=== PATIENT | male | born 1950 | race Caucasian/White ===

== ENCOUNTER 2023-10-20 16:24 | Observation (INO) | payer MEDICARE, SELFPAY ==
[2023-10-20 16:36] VITALS: BP 152/97; PULSE 70; RESP 20; TEMP 36.8; O2SAT 95; BMI 29.2
--- NOTE | 2023-10-20 16:40 | XR_ITS ---
The [address] [address] Patient Name: LALA POLLACK MRN: [id number] date: 1950 Sex: M Assigned Patient Location: ER Current Patient Location: ED.MAIN Accession/Order Number: [id number] Exam Date: 10/20/2023 16:55 Report Date: 10/20/2023 17:45 At the request of: SNEHAL BROOKS Procedure: XR ankle RT min 3V EXAM: XR tibia fibula RT 2V, XR foot RT min 3V, XR ankle RT min 3V HISTORY: fall COMPARISON: None. TECHNIQUE: 2 views of the right tibia-fibula and 3 views of the right foot and ankle FINDINGS: There is no acute fracture or distention. No aggressive bone lesion. Ankle mortise is normal. The talar dome is congruent. There is a small osseous spur. There is hallux valgus. There are degenerative changes of the forefoot and midfoot. There is soft tissue swelling of the ankle and dorsal foot. XR/XR ankle RT min 3V IMPRESSION: No acute fracture. Soft tissue swelling of the ankle and dorsal foot. Electronically authenticated by: ANJELICA MILLARD Date: 10/20/2023 17:45
--- NOTE | 2023-10-20 16:40 | XR_ITS ---
The [address] [address] Patient Name: LALA POLLACK MRN: [id number] date: 1950 Sex: M Assigned Patient Location: ER Current Patient Location: ED.MAIN Accession/Order Number: [id number] Exam Date: 10/20/2023 16:55 Report Date: 10/20/2023 17:45 At the request of: SNEHAL BROOKS Procedure: XR foot RT min 3V EXAM: XR tibia fibula RT 2V, XR foot RT min 3V, XR ankle RT min 3V HISTORY: fall COMPARISON: None. TECHNIQUE: 2 views of the right tibia-fibula and 3 views of the right foot and ankle FINDINGS: There is no acute fracture or distention. No aggressive bone lesion. Ankle mortise is normal. The talar dome is congruent. There is a small osseous spur. There is hallux valgus. There are degenerative changes of the forefoot and midfoot. There is soft tissue swelling of the ankle and dorsal foot. XR/XR foot RT min 3V IMPRESSION: No acute fracture. Soft tissue swelling of the ankle and dorsal foot. Electronically authenticated by: ANJELICA MILLARD Date: 10/20/2023 17:45
--- NOTE | 2023-10-20 16:40 | ECG_ITS ---
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
--- NOTE | 2023-10-20 16:41 | XR_ITS ---
The [address] [address] Patient Name: LALA POLLACK MRN: [id number] date: 1950 Sex: M Assigned Patient Location: ER Current Patient Location: ED.MAIN Accession/Order Number: [id number] Exam Date: 10/20/2023 16:55 Report Date: 10/20/2023 17:45 At the request of: SNEHAL BROOKS Procedure: XR tibia fibula RT 2V EXAM: XR tibia fibula RT 2V, XR foot RT min 3V, XR ankle RT min 3V HISTORY: fall COMPARISON: None. TECHNIQUE: 2 views of the right tibia-fibula and 3 views of the right foot and ankle FINDINGS: There is no acute fracture or distention. No aggressive bone lesion. Ankle mortise is normal. The talar dome is congruent. There is a small osseous spur. There is hallux valgus. There are degenerative changes of the forefoot and midfoot. There is soft tissue swelling of the ankle and dorsal foot. XR/XR tibia fibula RT 2V IMPRESSION: No acute fracture. Soft tissue swelling of the ankle and dorsal foot. Electronically authenticated by: ANJELICA MILLARD Date: 10/20/2023 17:45
--- NOTE | 2023-10-20 16:41 | PC.NURSE ---
Pain to right lower leg, swelling to right ankle present, skin pink and warm and pulses present.
--- NOTE | 2023-10-20 16:42 | ED.LOWEXI1 ---
HPI - Extremity Injury (Lower) General Chief Complaint: Extremity Injury, Lower Stated Complaint: Lower Extremity Injury Time Seen by Provider: 10/20/23 16:30 Source: patient and family Mode of arrival: Wheelchair Limitations: no limitations History of Present Illness HPI Narrative: 73-year-old male presents for a chief complaint of pain in his right ankle area. He had fallen yesterday and was seen at another hospital emergency department. He had x-rays of his tibia and these were found to be negative and he was discharged home. He is now having a great deal of trouble walking and isn't able to get around on the walker like he normally does. He saw his PCP who directed him here for further evaluation. Family reports that his physician was suggesting a short-term stay so that he could be seen by physical therapy. No other injury was sustained. He states it really doesn't hurt. Related Data Allergies Allergy/AdvReac Type Severity Reaction Status Date / Time No Known Drug Allergies Allergy Verified 10/20/23 16:35 Review of Systems ROS Narrative A ten point review of systems is negative except as noted above. PFSH PFSH Social History Smoking status: Former smoker Exam Narrative Exam Narrative: Nurses note and vital signs reviewed and patient is not hypoxic. General: The patient appears well and in no apparent distress. Patient is resting comfortably on cart. Skin: Warm, dry, no pallor noted. There is no rash noted. Head: Normocephalic, atraumatic Eye: Normal conjunctiva, no drainage Ears, Nose, Mouth, and Throat: oral mucosa is moist. Nares patent. Cardiovascular: Regular Rate and Rhythm Respiratory: Patient is in no distress, no accessory muscle use, lungs are clear to auscultation, no wheezing, rales or rhonchi Back: non-tender GI: soft and nontender Musculoskeletal: the right ankle and foot are swollen. There is no break in the skin. Neurological: awake and alert Psychiatric: Cooperative Constitutional Vital Signs, click to edit/add: Last Vital Signs Temp 98.3 F 10/20/23 16:36 Pulse 70 10/20/23 16:36 Resp 20 10/20/23 16:36 BP 152/97 H 10/20/23 16:36 Pulse Ox 95 10/20/23 16:36 O2 Del Method Room Air 10/20/23 16:36 Course Vital Signs Vital signs: Vital Signs Temperature 98.3 F 10/20/23 16:36 Pulse Rate 70 10/20/23 16:36 Respiratory Rate 20 10/20/23 16:36 Blood Pressure 152/97 H 10/20/23 16:36 Pulse Oximetry 95 10/20/23 16:36 Oxygen Delivery Method Room Air 10/20/23 16:36 Temperature 98.3 F 10/20/23 16:36 Pulse Rate 70 10/20/23 16:36 Respiratory Rate 20 10/20/23 16:36 Blood Pressure 152/97 H 10/20/23 16:36 Pulse Oximetry 95 10/20/23 16:36 Oxygen Delivery Method Room Air 10/20/23 16:36 MDM - Extremity Injury (Lower) MDM Narrative Medical decision making narrative: x-rays per radiology shows soft tissue swelling but no fracture. The patient will be admitted to the hospital, he cannot ambulate. Findings are discussed with the patient and his family. Differential Diagnosis Differential diagnosis: Likely ankle sprain and strain and other (foot fracture, ankle fracture) Lab Data Attestation: I reviewed the patient's lab results. Imaging Data right tibia, ankle, foot x-rays: Radiologist's impression: Procedure: XR ankle RT min 3V EXAM: XR tibia fibula RT 2V, XR foot RT min 3V, XR ankle RT min 3V HISTORY: fall COMPARISON: None. TECHNIQUE: 2 views of the right tibia-fibula and 3 views of the right foot and ankle FINDINGS: There is no acute fracture or distention. No aggressive bone lesion. Ankle mortise is normal. The talar dome is congruent. There is a small osseous spur. There is hallux valgus. There are degenerative changes of the forefoot and midfoot. There is soft tissue swelling of the ankle and dorsal foot. IMPRESSION: No acute fracture. Soft tissue swelling of the ankle and dorsal foot. Electronically authenticated by: ANJELICA MILLARD Date: 10/20/2023 17: Procedure: XR foot RT min 3V EXAM: XR tibia fibula RT 2V, XR foot RT min 3V, XR ankle RT min 3V HISTORY: fall COMPARISON: None. TECHNIQUE: 2 views of the right tibia-fibula and 3 views of the right foot and ankle FINDINGS: There is no acute fracture or distention. No aggressive bone lesion. Ankle mortise is normal. The talar dome is congruent. There is a small osseous spur. There is hallux valgus. There are degenerative changes of the forefoot and midfoot. There is soft tissue swelling of the ankle and dorsal foot. IMPRESSION: No acute fracture. Soft tissue swelling of the ankle and dorsal foot. Electronically authenticated by: ANJELICA MILLARD Date: 10/20/2023 17:45 Procedure: XR tibia fibula RT 2V EXAM: XR tibia fibula RT 2V, XR foot RT min 3V, XR ankle RT min 3V HISTORY: fall COMPARISON: None. TECHNIQUE: 2 views of the right tibia-fibula and 3 views of the right foot and ankle FINDINGS: There is no acute fracture or distention. No aggressive bone lesion. Ankle mortise is normal. The talar dome is congruent. There is a small osseous spur. There is hallux valgus. There are degenerative changes of the forefoot and midfoot. There is soft tissue swelling of the ankle and dorsal foot. IMPRESSION: No acute fracture. Soft tissue swelling of the ankle and dorsal foot. Electronically authenticated by: ANJELICA MILLARD Date: 10/20/2023 17:45 Discharge Plan Discharge Chief Complaint: Extremity Injury, Lower Clinical Impression: Inability to ambulate due to ankle or foot, Ankle sprain Patient Disposition: Admitted as Observation Time of Disposition Decision: 18:26 Condition: Good
[2023-10-20 17:09] LABS: Basophils Percent Auto 0.5 % (0.2-2.0); Eosinophils Percent Auto 0.5 % (0.9-7.0); Hematocrit 43.2 % (42.0-54.0); Hemoglobin 14.4 g/dL (14.0-18.0); Immature Granulocytes Abs Auto 0.02 10^3/uL (0.00-0.03); Immature Granulocytes Pct Auto 0.2 % (0.0-0.5); Lymphocytes Absolute Auto 0.7 10^3/uL (1.2-3.8); Lymphocytes Percent Auto 8.8 % (20.5-60.0); Mean Corpuscular HGB Conc 33.3 g/dL (29.9-35.2); Mean Corpuscular Hemoglobin 29.6 pg (25.9-34.0); Mean Corpuscular Volume 88.7 fL (80.0-94.0); Mean Platelet Volume 10.5 fL (9.5-13.5); Monocytes Absolute Auto 1.1 10^3/uL (0.3-0.8); Monocytes Percent Auto 12.9 % (1.7-12.0); Neutrophils Absolute Auto 6.3 10^3/uL (1.4-6.5); Neutrophils Percent Auto 77.1 % (43.0-75.0); Platelet Count 220 10^3/uL (150-450); Red Blood Count 4.87 10^6/uL (4.70-6.10); Red Cell Distribution Width 13.3 % (11.0-15.0); White Blood Count 8.2 10^3/uL (4.0-11.0)
[2023-10-20 17:10] LABS: Anion Gap 12.4; BUN Creatinine Ratio 16.4; Carbon Dioxide 29.8 mmol/L (21.0-32.0); Chloride 102 mmol/L (98-107); Estimated GFR (African America 58 (>=60); Estimated GFR (Non-African Ame 48 (>=60); Glucose 109 mg/dL (74-106); Potassium 4.2 mmol/L (3.5-5.1); Sodium 140 mmol/L (136-145)
[2023-10-20 18:31] VITALS: BP 147/83; PULSE 67; RESP 20; O2SAT 98
[2023-10-20 20:23] VITALS: BP 150/82; PULSE 75; RESP 18; TEMP 36.5; O2SAT 90; BMI 31.4
[2023-10-21 00:13] LABS: Uric Acid 8.1 mg/dL (3.5-7.2)
[2023-10-21 00:14] LABS: C Reactive Protein 5.21 mg/dL (<=0.30)
[2023-10-21] MEDS: ENOXAPARIN SODIUM 40 MG/0.4 ML SYRINGE SUBQ (00:27)
[2023-10-21 04:53] VITALS: BP 134/77; PULSE 77; RESP 18; TEMP 36.6; O2SAT 93
[2023-10-21 05:32] VITALS: O2SAT 93
--- NOTE | 2023-10-21 05:33 | W.PM.TELEPN ---
Progress Note: Subjective Subjective Interval history: CC: Ankle sprain HPI: 73 y/o M who presents with right ankle swelling after a fall at home. he lives by himself and thinks he twisted his ankle when he fell, developed swelling and pain, however pain not bothering him so much as swelling is. denies any hx of DVT, wounds, CHF, lymphedema. denies any fevers, chills, chest pain, abdominal pain. unable to ambulate and care for himself seen by PCP who directed patient to ER for further evaluation and care. in the ER, images of ankle without fracture. pain medicine given. PKHx: CAD, COPD, HTN PSHx: aortic valve replacement, CABG SHx: denies smoking, drinks etoh occasionally ROS: negative except for HPI: PE: Gen: lying in bed, in no distress, AO x3 HEENT: NC/AT, EOMI CVS: RRR Lungs: normal respiratory effort GI: soft, non tender Ext: Right ankle slight warmth compared to left, with swelling, ROM intact Neuro: no focal deficits Exam Constitutional Vital Signs, click to edit/add: Last Vital Signs Temp 97.8 F 10/21/23 04:53 Pulse 77 10/21/23 04:53 Resp 18 10/21/23 04:53 BP 134/77 10/21/23 04:53 Pulse Ox 93 L 10/21/23 04:53 O2 Del Method Room Air 10/21/23 04:53 Progress Note: Objective Labs Labs: Short CBC 10/20/23 Range/Units 16:47 WBC 8.2 (4.0-11.0) 10^3/uL Hgb 14.4 (14.0-18.0) g/dL Hct 43.2 (42.0-54.0) % Plt Count 220 (150-450) 10^3/uL BMP 10/20/23 16:47 Sodium 140 Potassium 4.2 Chloride 102 Carbon Dioxide 29.8 BUN 24.0 H Creatinine 1.46 H Glucose 109 H Calcium 9.0 Progress Note: A&P Assessment and Plan (1) Inability to ambulate due to ankle or foot: (2) Ankle sprain: (3) COPD (chronic obstructive pulmonary disease): (4) HTN (hypertension): Plan Right ankle sprain Mechanical fall at home - RICE, supportive care - PT/OT - check uric acid, CRP - Consider advanced imaging DVT ppx-heparin Full Code Medication reconciled discussed with ER doctor, bedside nurse, patient updated of plan of care, all questions answered to their satisfaction Disposition- pending PT/OT as the provider of this telehealth evaluation, requested by the patient's evaluating physician, i attest that i introduced myself to the patient, provided my credentials, and determined that telemedicine via a real time 2 way interactive via audio and video platform is an appropriate and effective means of providing this service. i reviewed patient chart, and had a discussion with patient and caring nurse, mutually agreed to continue telehealth visit. Telemedicine Attestation Telemedicine Attestation I conducted this encounter from [[place] ] via secure live, [id number] video conference with the patient, located at [facility] with [nursing staff]. Prior to the interview, the risks and benefits of telemedicine were discussed with the patient and verbal consent was obtained.
[2023-10-21] MEDS: CARVEDILOL 25 MG TABLET PO (08:53)
[2023-10-21] MEDS: ASPIRIN 81 MG TABLET.DR PO (08:53)
--- NOTE | 2023-10-21 10:57 | P.HP_ITS ---
H&P: HPI History of Present Illness Chief complaint: Lower Extremity Injury Inabilty to ambulate due to Narrative: Patient presented to the emergency room with right ankle pain. This is after a fall. Ankle was twisted at the time. In ER no fracture was noted. Patient unable to walk in the emergency room secondary to pain. He was admitted to medical surgical floor. Because the picture really did not become clear after talk with the patient when he denied the pain did discuss the case with his daughter states he is just minimizing his symptoms. Workup from nighttime hospitalist did find possible gout. Elevated uric acid as well as CRP. Review of Systems ROS Status of ROS 10 or more systems reviewed and unremarkable except as noted in history and below PFSH [facility] Medical History (Updated 10/20/23 @ 20:59 by Mey Koroma) COPD (chronic obstructive pulmonary disease) ?J44.9 - Chronic obstructive pulmonary disease, unspecified (ICD-10) HTN (hypertension) ?I10 - Essential (primary) hypertension (ICD-10) Surgical History (Updated 10/20/23 @ 20:58 by Mey Koroma) Aortic valve replaced ?Z95.2 - Presence of prosthetic heart valve (ICD-10) History of open heart surgery ?Z98.890 - Other specified postprocedural states (ICD-10) Family History (Updated 10/20/23 @ 20:59 by Mey Koroma) Mother Family history of cancer Family history of hypertension Father Family history of cancer Family history of myocardial infarction Family history of hypertension Social History (Updated 10/20/23 @ 21:01 by Mey Koroma) Within the past year, how often did you have a drink containing alcohol: never Within the past year, how often did you have six or more drinks on one occasion: never Score interpretation: A score less than 4 is consistent with normal alcohol consumption. Smoking status: Former smoker Second hand tobacco smoke exposure: Yes Non-prescribed substance use: denies use Previous occupational history: retired Known occupational exposures/hazards: No Highest level of school completed/degree received: high school graduate Do you want help with school or training: No Are you now , , , , never or living with a partner: In a typical week, how many times do you talk on the telephone with family, friends, or neighbors: 3 or more times per week How often do you get together with friends or relatives: 3 or more times per week How often do you attend hindu or christianity services: never Do you belong to any clubs or organizations such as hindu groups unions, fraternal or athletic groups, or school groups: no Total score: 1 Score interpretation: A score of less than or equal to 1 indicates the most socially isolated. Little interest or pleasure in doing things: not at all Feeling down, depressed, or hopeless: not at all Feel stressed/tense/nervous/anxious/difficulty sleeping: not at all Due to disability, difficulty making decisions: No Do you think of yourself as: straight/heterosexual Gender Identity: male Meds Home Medications and Allergies Home Medications Medication Instructions Recorded Confirmed Type albuterol 90 mcg/actuation aerosol 90 mcg inhalation Q6H PRN 10/20/23 10/20/23 History inhaler shortness of breath aspirin 81 mg tablet,delayed 81 mg PO DAILY 10/20/23 10/20/23 History release (Adult Aspirin Regimen) carvedilol 25 mg tablet (Coreg) 25 mg PO DAILY 10/20/23 10/20/23 History allopurinol 100 mg tablet 100 mg PO DAILY #30 tabs 10/21/23 Rx prednisone 20 mg tablet 20 mg PO TID #12 tabs 10/21/23 Rx Allergies Allergy/AdvReac Type Severity Reaction Status Date / Time No Known Drug Allergies Allergy Verified 10/20/23 16:35 Exam Constitutional Vital Signs, click to edit/add: Last Vital Signs Temp 97.8 F 10/21/23 04:53 Pulse 77 10/21/23 04:53 Resp 18 10/21/23 04:53 BP 134/77 10/21/23 04:53 Pulse Ox 93 L 10/21/23 05:32 O2 Del Method Room Air 10/21/23 05:32 Documenting provider has reviewed patient's vital signs: yes Common normals: no apparent distress Chest Common normals: inspection of chest normal Respiratory Common normals: normal respiratory effort and no retractions Cardio Common normals: regular rate GI Common normals: Normal to inspection, nondistended, normoactive bowel sounds present Extremity Common normals: normal to inspection (Right ankle is wrapped, does have some tenderness in the inf lat malleous) Other: First MCP joint without inflammation Results Labs Labs: Short CBC 10/20/23 Range/Units 16:47 WBC 8.2 (4.0-11.0) 10^3/uL Hgb 14.4 (14.0-18.0) g/dL Hct 43.2 (42.0-54.0) % Plt Count 220 (150-450) 10^3/uL [facility] 10/20/23 16:47 Sodium 140 Potassium 4.2 Chloride 102 Carbon Dioxide 29.8 BUN 24.0 H Creatinine 1.46 H Glucose 109 H Calcium 9.0 Assessment and Plan Assessment and Plan (1) Inability to ambulate due to ankle or foot: (2) Ankle sprain: (3) COPD (chronic obstructive pulmonary disease): (4) HTN (hypertension): Plan Unable to ambulate secondary to ankle pain. Possible gout with elevation of uric acid and CRP. Will treat patient for gout. If using colchicine and 1 dose of Decadron improves him to the point that he can ambulate safely without pain. He can be discharged home with improving condition. Medications see list. Follow-up with PCP within the next week. Mild COPD-maintain current medications Hypertension-continue with current medications Elevated BUN/creatinine-uncertain baseline. Possible early chronic kidney disease -will hold on NSAIDs except aspirin
[2023-10-21 11:30] VITALS: O2SAT 91
--- NOTE | 2023-10-21 11:31 | RESP.RT ---
Pt made aware of MDI PRN order if SOB, denies need at this time
[2023-10-21] MEDS: DEXAMETHASONE SOD PHOS 10 MG/ML VIAL IV (11:47)
[2023-10-21] MEDS: COLCHICINE 0.6 MG TABLET 1.2 MG PO (11:47)
== END 2023-10-21 14:18 | disposition home or self-care (01) ==
LOC: ER 18:35 → MS 20:19
PROVIDERS: Internal Medicine; Admitting Provider Family Medicine; Emergency Provider Emergency Medicine; PCP Family Medicine; Visit Provider Family Medicine
DX: S93.401A Sprain of unspecified ligament of right ankle, initial encounter (principal); J44.9 Chronic obstructive pulmonary disease, unspecified; I10 Essential (primary) hypertension; Z95.2 Presence of prosthetic heart valve; Z87.891 Personal history of nicotine dependence; Z79.82 Long term (current) use of aspirin; Z79.899 Other long term (current) drug therapy; X50.1XXA Overexertion from prolonged static or awkward postures, initial encounter; M10.9 Gout, unspecified; R79.89 Other specified abnormal findings of blood chemistry; I25.10 Atherosclerotic heart disease of native coronary artery without angina pectoris; Z95.1 Presence of aortocoronary bypass graft; W19.XXXA Unspecified fall, initial encounter; R26.2 Difficulty in walking, not elsewhere classified
CPT/HCPCS: 36415; 73590; 73610; 73630; 80048; 81001; 84550; 85025; 86140; 93005; 96372; 96374; 99285; G0378; J1100; Q3014

== ENCOUNTER 2023-12-25 08:21 | Observation (INO) | payer MEDICARE, SELFPAY ==
[2023-12-25] VITALS (36 sets, daily range): BP systolic 124–156; BP diastolic 73–122; PULSE 80–112; RESP 18–31; TEMP 36.6–38.3; O2SAT 88–100; BMI 28.9
--- OUTSIDE RECORDS SUMMARY | 2023-12-25 08:33 | XMS_ITS ---
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 Role Phone NAN CANTOR Referring Unavailable NO PCP, NO PCP Primary Care Unavailable Purpose PROBLEMS DATE TYPE CONDITION / CODE ATTENDING STATUS ZOFIA RCE 11/23/2023 Unknown Age-related phys ical debility / R54(ICD-10) NA Active [facility] PROCEDURES No Procedure Records Found VITAL SIGNS No Vital Signs Records Found RESULTS No Result Records Found ALLERGIES DATE TYPE / CODE NAME / CODE REACTION SEVERITY SOURCE Drug Class/[id number](SNO MED CT) NO KNOWN ALLERGIES [facility] ENCOUNTERS ADMIT/DISCHARGE ACCOUNT NUMBER ADMITTING ENCOUNTER CLASS LOC ATION SOURCE 11/23/2023 [id number] [facility]CTION[facility] STATUS No Functional Status Records Found EQUIPMENT No Equipment Records Found PAYERS ENCOUNTER GUARANTOR PAYER SUBSCRIBER SOURCE 11/23/2023 LALA POLLACK IIDOB: [place], [place] [address]Szb: (AW) Primary Insurance:[facility] MED[facility] - [place] RESIDENTPolicy Number: [id number] Date:2023-04-29 LALA POLLACK IIDOB: [id number] [place], [place] [address]Hwd: (HP) [facility] SOCIAL HISTORY No Social History Records Found FAMILY HISTORY No Family History Records Found No Status Records Found ADVANCE DIRECTIVES No Advanced Directives Records Found INFORMATION SOURCE DATE CREATED AUTHOR AUTHOR'S RAMONE ATION 12/25/2023 [facility]
--- NOTE | 2023-12-25 08:37 | ECG_ITS ---
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
--- NOTE | 2023-12-25 08:37 | XR_ITS ---
The [address] [address] Patient Name: LALA POLLACK MRN: [id number] date: 1950 Sex: M Assigned Patient Location: ED.MAIN Current Patient Location: ER Accession/Order Number: [id number] Exam Date: 12/25/2023 08:55 Report Date: 12/25/2023 09:16 At the request of: SNEHAL BROOKS Procedure: XR chest 1V EXAM: XR chest 1V HISTORY: Weakness. COMPARISON: None. TECHNIQUE: AP erect portable chest radiograph performed. FINDINGS: There are median sternotomy wires. There is mild enlargement of the cardiac silhouette. There is mild elevation of the left hemidiaphragm. There is no consolidation or infiltrate. There is mild blunting of the right lateral costophrenic angle. There is no pulmonary vascular congestion. There is no pneumothorax. There is no acute osseous abnormality. XR/XR chest 1V IMPRESSION: There is mild blunting of the right lateral costophrenic angle. There is otherwise no acute cardiopulmonary process. Electronically authenticated by: JOE MEDEIROS Date: 12/25/2023 09:16
[2023-12-25 09:06] LABS: Bilirubin Urine MODERATE (NEGATIVE); Blood Urine SMALL (NEGATIVE); Clarity Urine CLEAR (CLEAR); Color Urine DK. YELLOW (YELLOW); Glucose Urine UA NEGATIVE (NEGATIVE); Ketones Urine TRACE mg/dL (NEGATIVE); Leukocyte Esterase Urine NEGATIVE (NEGATIVE); Nitrite Urine NEGATIVE (NEGATIVE); Protein Urine 30 mg/dL (NEG/TRACE); Specific Gravity Urine >=1.030 (1.005-1.025); pH Urine 5.5 (5.0-9.0)
[2023-12-25 09:10] LABS: Basophils Percent Auto 0.3 % (0.2-2.0); Hemoglobin 13.8 g/dL (14.0-18.0); Immature Granulocytes Abs Auto 0.03 10^3/uL (0.00-0.03); Immature Granulocytes Pct Auto 0.5 % (0.0-0.5); Lymphocytes Absolute Auto 0.3 10^3/uL (1.2-3.8); Lymphocytes Percent Auto 5.5 % (20.5-60.0); Mean Corpuscular HGB Conc 32.9 g/dL (29.9-35.2); Mean Corpuscular Hemoglobin 29.4 pg (25.9-34.0); Mean Corpuscular Volume 89.6 fL (80.0-94.0); Mean Platelet Volume 10.6 fL (9.5-13.5); Monocytes Absolute Auto 1.1 10^3/uL (0.3-0.8); Monocytes Percent Auto 18.4 % (1.7-12.0); Neutrophils Absolute Auto 4.5 10^3/uL (1.4-6.5); Neutrophils Percent Auto 75.3 % (43.0-75.0); Platelet Count 222 10^3/uL (150-450); Red Blood Count 4.69 10^6/uL (4.70-6.10); Red Cell Distribution Width 13.4 % (11.0-15.0)
--- NOTE | 2023-12-25 09:17 | ED_ITS ---
HPI - General Adult General Chief complaint: Fall Stated complaint: FALL WEAKNESS CONFUSION Time Seen by Provider: 12/25/23 08:23 Source: patient Mode of arrival: ambulance Limitations: altered mental status History of Present Illness HPI narrative: 73-year-old male presents to the emergency department for weakness and falling. He apparently fell twice at home. He was brought in by paramedics and there was no apparent injury. He was finally himself. Upon arrival he was noted to have urine and stool in his clothing. He doesn't seem to have any physical complaints. He is a poor historian. Related Data Home Medications Medication Instructions Recorded Confirmed albuterol 90 mcg/actuation aerosol 90 mcg inhalation Q6H PRN 10/20/23 10/20/23 inhaler shortness of breath aspirin 81 mg tablet,delayed 81 mg PO DAILY 10/20/23 12/25/23 release (Adult Aspirin Regimen) carvedilol 25 mg tablet (Coreg) 25 mg PO DAILY 10/20/23 12/25/23 albuterol sulfate 90 mcg/actuation 1 puff inhalation Q4H PRN 12/25/23 12/25/23 aerosol inhaler (Ventolin HFA) shortness of breath or wheezing allopurinol 100 mg tablet 300 mg PO DAILY 12/25/23 12/25/23 Previous Rx's Medication Instructions Recorded prednisone 20 mg tablet 20 mg PO TID #12 tabs 10/21/23 Allergies Allergy/AdvReac Type Severity Reaction Status Date / Time No Known Drug Allergies Allergy Verified 10/20/23 16:35 Review of Systems ROS Narrative nnot obtainable, poor historian [facility] Medical History (Updated 12/25/23 @ 10:07 by Og Espinosa MD) HTN (hypertension) ?I10 - Essential (primary) hypertension (ICD-10) COPD (chronic obstructive pulmonary disease) ?J44.9 - Chronic obstructive pulmonary disease, unspecified (ICD-10) Ankle sprain ?S93.409A - Sprain of unspecified ligament of unspecified ankle, initial encounter (ICD-10) Inability to ambulate due to ankle or foot ?R26.2 - Difficulty in walking, not elsewhere classified (ICD-10) Surgical History (Updated 10/20/23 @ 20:58 by Mey Koroma) Aortic valve replaced ?Z95.2 - Presence of prosthetic heart valve (ICD-10) History of open heart surgery ?Z98.890 - Other specified postprocedural states (ICD-10) Family History (Updated 10/20/23 @ 20:59 by Mey Koroma) Mother Family history of cancer Family history of hypertension Father Family history of cancer Family history of myocardial infarction Family history of hypertension Social History (Updated 10/20/23 @ 21:01 by Mey Koroma) Within the past year, how often did you have a drink containing alcohol: never Within the past year, how often did you have six or more drinks on one occasion: never Score interpretation: A score less than 4 is consistent with normal alcohol consumption. Smoking status: Former smoker Second hand tobacco smoke exposure: Yes Non-prescribed substance use: denies use Previous occupational history: retired Known occupational exposures/hazards: No Highest level of school completed/degree received: high school graduate Do you want help with school or training: No Are you now , , , , never or living with a partner: In a typical week, how many times do you talk on the telephone with family, friends, or neighbors: 3 or more times per week How often do you get together with friends or relatives: 3 or more times per week How often do you attend nondenominational or zoroastrianism services: never Do you belong to any clubs or organizations such as nondenominational groups unions, fraternal or athletic groups, or school groups: no Total score: 1 Score interpretation: A score of less than or equal to 1 indicates the most socially isolated. Little interest or pleasure in doing things: not at all Feeling down, depressed, or hopeless: not at all Feel stressed/tense/nervous/anxious/difficulty sleeping: not at all Due to disability, difficulty making decisions: No Do you think of yourself as: straight/heterosexual Gender Identity: male Exam Narrative Exam Narrative: Nurses note and vital signs reviewed and patient is not hypoxic. General: The patient appears well and in no apparent distress. Patient is resting comfortably on cart. Skin: Warm, dry, no pallor noted. There is no rash noted. Head: Normocephalic, atraumatic Eye: Normal conjunctiva, no drainage Ears, Nose, Mouth, and Throat: oral mucosa is moist. Nares patent. Cardiovascular: Regular Rate and Rhythm Respiratory: Patient is in no distress, no accessory muscle use, lungs are clear to auscultation, no wheezing, rales or rhonchi Back: non-tender GI:often nontender Musculoskeletal: The patient has no evidence of calf tenderness, no pitting edema, symmetrical pulses noted bilaterally. no palpable tenderness to his extremities. Neurological: and alert. He is oriented to self. He knows he is in a hospital. He doesn't know the year and his family states that's normal for him. Psychiatric: Cooperative Constitutional Vital Signs, click to edit/add: Last Vital Signs Temp 98.3 F 12/25/23 08:25 Pulse 91 H 12/25/23 09:30 Resp 29 H 12/25/23 09:30 BP 148/88 H 12/25/23 09:30 Pulse Ox 99 12/25/23 09:56 O2 Del Method Nasal Cannula 12/25/23 09:56 O2 Flow Rate 3 12/25/23 09:56 Course Vital Signs Vital signs: Vital Signs Pulse Rate 98 H 12/25/23 08:24 Respiratory Rate 27 H 12/25/23 08:24 Pulse Oximetry 95 12/25/23 08:24 Temperature 98.3 F 12/25/23 08:25 Pulse Rate 91 H 12/25/23 09:30 Respiratory Rate 29 H 12/25/23 09:30 Blood Pressure 148/88 H 12/25/23 09:30 Pulse Oximetry 99 12/25/23 09:56 Oxygen Delivery Method Nasal Cannula 12/25/23 09:56 Oxygen Delivery Flow Rate 3 12/25/23 09:56 Medical Decision Making MDM Narrative Medical decision making narrative: the patient has generalized weakness and has tested positive for coated. He is being admitted and findings are discussed with the patient and his family. Differential Diagnosis Differential Diagnosis: dehydration, Covid, influenza, urinary tract infection, pneumonia Medical Records Medical records reviewed: Yes I reviewed the patient's medical records Lab Data Lab results reviewed: Yes I reviewed the patient's lab results Labs: Lab Results 12/25/23 12/25/23 12/25/23 Range/Units 08:40 08:42 08:45 WBC 6.0 (4.0-11.0) 10^3/uL RBC 4.69 L (4.70-6.10) 10^6/uL Hgb 13.8 L (14.0-18.0) g/dL Hct 42.0 (42.0-54.0) % MCV 89.6 (80.0-94.0) fL MCH 29.4 (25.9-34.0) pg MCHC 32.9 (29.9-35.2) g/dL RDW 13.4 (11.0-15.0) % Plt Count 222 (150-450) 10^3/uL MPV 10.6 (9.5-13.5) fL Neut % (Auto) 75.3 H (43.0-75.0) % Lymph % (Auto) 5.5 L (20.5-60.0) % [place] % (Auto) 18.4 H (1.7-12.0) % Eos % (Auto) 0.0 L (0.9-7.0) % Baso % (Auto) 0.3 (0.2-2.0) % Neut # (Auto) 4.5 (1.4-6.5) 10^3/uL Lymph # (Auto) 0.3 L (1.2-3.8) 10^3/uL [place] # (Auto) 1.1 H (0.3-0.8) 10^3/uL Eos # (Auto) 0.0 (0.0-0.7) 10^3/uL Baso # (Auto) 0.0 (0.0-0.1) 10^3/uL Abs Immat Gran (auto) 0.03 (0.00-0.03) 10^3/uL Imm/Tot Granulo (auto) 0.5 (0.0-0.5) % Sodium 135 L (136-145) mmol/L Potassium 4.0 (3.5-5.1) mmol/L Chloride 97 L (98-107) mmol/L Carbon Dioxide 30.1 (21.0-32.0) mmol/L Anion Gap 11.9 BUN 19.0 H (7.0-18.0) mg/dL Creatinine 1.40 H (0.70-1.30) mg/dL Est GFR ( Amer) >60 (>=60) Est GFR (Non-Af Amer) 50 L (>=60) BUN/Creatinine Ratio 13.6 Glucose 112 H (74-106) mg/dL Calcium 9.3 (8.5-10.1) mg/dL Total Bilirubin (0.2-1.0) mg/dL Direct Bilirubin (0.0-0.2) mg/dL AST (15-37) U/L ALT (16-63) U/L Alkaline Phosphatase (46-116) U/L Troponin I High Sens (4.0-76.1) pg/mL Total Protein (6.4-8.2) g/dL Albumin (3.4-5.0) g/dL Globulin g/dL Albumin/Globulin Ratio Urine Color Dk. yellow (YELLOW) Urine Clarity Clear (CLEAR) Urine pH 5.5 (5.0-9.0) Ur Specific [place] >=1.030 A (1.005-1.025) Urine Protein 30 A (NEG/TRACE) mg/dL Urine Glucose (UA) Negative (NEGATIVE) mg/dL Urine Ketones Trace A (NEGATIVE) mg/dL Urine Occult Blood Small A (NEGATIVE) Urine Nitrite Negative (NEGATIVE) Urine Bilirubin Moderate A (NEGATIVE) Urine Urobilinogen 1.0 (0.2-1.0) EU/dL Ur Leukocyte Esterase Negative (NEGATIVE) Urine RBC 2-5 A (0-2) #/HPF Urine WBC None seen (NONE SEEN) #/HPF Ur Squamous Epith Cells Few A (NONE/RARE) #/LPF Urine Crystals Seen A (None Seen) #/HPF Amorphous Sediment Few Urine Bacteria None seen (NONE SEEN) #/HPF Urine Casts Seen A (NONE SEEN) #/LPF Fine Granular Casts Rare Urine Mucus Large A (NONE SEEN) Urine Sperm Seen Ur Culture Indicated? Already ordered Urine Opiates Screen Negative (NEGATIVE) Ur Buprenorphine Scrn Negative (NEGATIVE) Ur Oxycodone Screen Negative (NEGATIVE) Urine Methadone Screen Negative (NEGATIVE) Ur Barbiturates Screen Negative (NEGATIVE) U Tricyclic Antidepress Negative (NEGATIVE) Ur Phencyclidine Scrn Negative (NEGATIVE) Ur Amphetamines Screen Negative (NEGATIVE) U Methamphetamines Scrn Negative (NEGATIVE) U Benzodiazepines Scrn Negative (NEGATIVE) Urine Cocaine Screen Negative (NEGATIVE) U Cannabinoids Screen Negative (NEGATIVE) Ethanol Quant mg/dL Influenza Type A Ag Negative Influenza Type B Ag Negative SARS-CoV-2 Ag (CV2AG) Positive A (NEGATIVE) 12/25/23 Range/Units 08:50 WBC (4.0-11.0) 10^3/uL RBC (4.70-6.10) 10^6/uL Hgb (14.0-18.0) g/dL Hct (42.0-54.0) % MCV (80.0-94.0) fL MCH (25.9-34.0) pg MCHC (29.9-35.2) g/dL RDW (11.0-15.0) % Plt Count (150-450) 10^3/uL MPV (9.5-13.5) fL Neut % (Auto) (43.0-75.0) % Lymph % (Auto) (20.5-60.0) % [place] % (Auto) (1.7-12.0) % Eos % (Auto) (0.9-7.0) % Baso % (Auto) (0.2-2.0) % Neut # (Auto) (1.4-6.5) 10^3/uL Lymph # (Auto) (1.2-3.8) 10^3/uL [place] # (Auto) (0.3-0.8) 10^3/uL Eos # (Auto) (0.0-0.7) 10^3/uL Baso # (Auto) (0.0-0.1) 10^3/uL Abs Immat Gran (auto) (0.00-0.03) 10^3/uL Imm/Tot Granulo (auto) (0.0-0.5) % Sodium (136-145) mmol/L Potassium (3.5-5.1) mmol/L Chloride (98-107) mmol/L Carbon Dioxide (21.0-32.0) mmol/L Anion Gap BUN (7.0-18.0) mg/dL Creatinine (0.70-1.30) mg/dL Est GFR ( Amer) (>=60) Est GFR (Non-Af Amer) (>=60) BUN/Creatinine Ratio Glucose (74-106) mg/dL Calcium (8.5-10.1) mg/dL Total Bilirubin 1.1 H (0.2-1.0) mg/dL Direct Bilirubin 0.4 H (0.0-0.2) mg/dL AST 31 (15-37) U/L ALT 37 (16-63) U/L Alkaline Phosphatase 133 H (46-116) U/L Troponin I High Sens 34.6 (4.0-76.1) pg/mL Total Protein 8.3 H (6.4-8.2) g/dL Albumin 3.6 (3.4-5.0) g/dL Globulin 4.7 g/dL Albumin/Globulin Ratio 0.8 Urine Color (YELLOW) Urine Clarity (CLEAR) Urine pH (5.0-9.0) Ur Specific [place] (1.005-1.025) Urine Protein (NEG/TRACE) mg/dL Urine Glucose (UA) (NEGATIVE) mg/dL Urine Ketones (NEGATIVE) mg/dL Urine Occult Blood (NEGATIVE) Urine Nitrite (NEGATIVE) Urine Bilirubin (NEGATIVE) Urine Urobilinogen (0.2-1.0) EU/dL Ur Leukocyte Esterase (NEGATIVE) Urine RBC (0-2) #/HPF Urine WBC (NONE SEEN) #/HPF Ur Squamous Epith Cells (NONE/RARE) #/LPF Urine Crystals (None Seen) #/HPF Amorphous Sediment Urine Bacteria (NONE SEEN) #/HPF Urine Casts (NONE SEEN) #/LPF Fine Granular Casts Urine Mucus (NONE SEEN) Urine Sperm Ur Culture Indicated? Urine Opiates Screen (NEGATIVE) Ur Buprenorphine Scrn (NEGATIVE) Ur Oxycodone Screen (NEGATIVE) Urine Methadone Screen (NEGATIVE) Ur Barbiturates Screen (NEGATIVE) U Tricyclic Antidepress (NEGATIVE) Ur Phencyclidine Scrn (NEGATIVE) Ur Amphetamines Screen (NEGATIVE) U Methamphetamines Scrn (NEGATIVE) U Benzodiazepines Scrn (NEGATIVE) Urine Cocaine Screen (NEGATIVE) U Cannabinoids Screen (NEGATIVE) Ethanol Quant <3 mg/dL Influenza Type A Ag Influenza Type B Ag SARS-CoV-2 Ag (CV2AG) (NEGATIVE) Imaging Data Chest x-ray: Radiologist's impression: ITS Impressions Chest X-Ray 12/25/23 08:37 IMPRESSION: There is mild blunting of the right lateral costophrenic angle. There is otherwise no acute cardiopulmonary process. Electronically authenticated by: JOE MEDEIROS Date: 12/25/2023 09:16 Discharge Plan Discharge Chief Complaint: Fall Clinical Impression: COVID-19, Generalized weakness Patient Disposition: Admitted as Observation Time of Disposition Decision: 10:07 Condition: Good Prescriptions / Home Meds: No Action aspirin [Adult Aspirin Regimen] 81 mg tablet,delayed release (DR/EC) 81 mg PO DAILY carvedilol [Coreg] 25 mg tablet 25 mg PO DAILY Rx Instructions: must administer with a meal/food albuterol 90 mcg/actuation aerosol 90 mcg inhalation Q6H PRN (Reason: shortness of breath) prednisone 20 mg tablet 20 mg PO TID Qty: 12 0RF albuterol sulfate [Ventolin HFA] 90 mcg/actuation HFA aerosol inhaler 1 puff INHALATION Q4H PRN (Reason: shortness of breath or wheezing) allopurinol 100 mg tablet 300 mg PO DAILY Referrals: NAN CANTOR [Primary Care Provider] - 1 week
[2023-12-25 09:21] LABS: Anion Gap 11.9; BUN Creatinine Ratio 13.6; Calcium 9.3 mg/dL (8.5-10.1); Carbon Dioxide 30.1 mmol/L (21.0-32.0); Chloride 97 mmol/L (98-107); Estimated GFR (African America >60 (>=60); Estimated GFR (Non-African Ame 50 (>=60); Glucose 112 mg/dL (74-106); Sodium 135 mmol/L (136-145)
[2023-12-25 09:29] LABS: Alanine Aminotransferase 37 U/L (16-63); Albumin Globulin Ratio 0.8; Albumin Level 3.6 g/dL (3.4-5.0); Alkaline Phosphatase 133 U/L (46-116); Aspartate Amino Transferase 31 U/L (15-37); Bilirubin Direct 0.4 mg/dL (0.0-0.2); Bilirubin Total 1.1 mg/dL (0.2-1.0); Ethanol <3 mg/dL; Globulin 4.7 g/dL; Total Protein 8.3 g/dL (6.4-8.2); Troponin I High Sensitivity 34.6 pg/mL (4.0-76.1)
[2023-12-25 09:38] LABS: Amphetamine Screen Urine NEGATIVE (NEGATIVE); Barbiturates Screen Urine NEGATIVE (NEGATIVE); Benzodiazepines Screen Urine NEGATIVE (NEGATIVE); Buprenorphine Screen Urine NEGATIVE (NEGATIVE); Cannabinoid Screen Urine NEGATIVE (NEGATIVE); Cocaine Screen Urine NEGATIVE (NEGATIVE); Methadone Screen Urine NEGATIVE (NEGATIVE); Methamphetamines Screen Urine NEGATIVE (NEGATIVE); Opiate Screen Urine NEGATIVE (NEGATIVE); Oxycodone Screen Urine NEGATIVE (NEGATIVE); Phencyclidine Screen Urine NEGATIVE (NEGATIVE); Tricyclic Antidepressant Urine NEGATIVE (NEGATIVE)
[2023-12-25 09:41] LABS: Bacteria Urine NONE SEEN #/HPF (NONE SEEN); Mucus Urine LARGE (NONE SEEN); Squamous Epithelial Cell Urine FEW #/LPF (NONE/RARE); WBC Urine NONE SEEN #/HPF (NONE SEEN)
[2023-12-25 09:42] LABS: Amorphous Sediment Urine FEW; Cast Seen? SEEN #/LPF (NONE SEEN); Crystals Seen? Seen #/HPF (None Seen)
[2023-12-25 09:43] LABS: Fine Granular Casts Urine RARE; Sperm Urine SEEN
[2023-12-25 09:44] LABS: Urine Culture Indicated ALREADY ORDERED
[2023-12-25 09:49] LABS: Influenza Virus A Antigen Negative; Influenza Virus B Antigen Negative; Internal Control Within Normal Limits; SARS-CoV-2 Ag POSITIVE (NEGATIVE)
--- NOTE | 2023-12-25 10:03 | ECG_ITS ---
[facility] Test Date: 2023-12-25 Pat Name: LALA POLLACK Department: Room: - Gender: Male [employer]: : [id number] Requested By: Order Number: [id number] Reading MD: MISTY CRUZ Measurements Intervals [place] Rate: 92 P: 270 AR: 166 QRS: 26 QRSD: 110 T: 177 QT: 368 QTc: 417 Interpretive Statements Sinus rhythm 1570 with occasional ventricular premature complexes 3624 Possible inferolateral myocardial infarction, age undetermined [address] depression 4564 Twave abnormality, possible lateral ischemia 9150 abnormal ECG Electronically Signed On 12-26-2023 10:44:35 EST by MISTY CRUZ
--- OUTSIDE RECORDS SUMMARY | 2023-12-25 12:48 | XMS_ITS ---
Author Name Unknown Organization [facility] Care Team Providers Care Hospice Art Therapist Name Role Phone NAN CANTOR Referring Unavailable NO PCP, NO PCP Primary Care Unavailable Purpose PROBLEMS DATE TYPE CONDITION / CODE ATTENDING STATUS ZOFIA RCE 11/23/2023 Unknown Age-related phys ical debility / R54(ICD-10) NA Active [facility] PROCEDURES No Procedure Records Found VITAL SIGNS No Vital Signs Records Found RESULTS No Result Records Found ALLERGIES DATE TYPE / CODE NAME / CODE REACTION SEVERITY SOURCE Drug Class/[id number](SNO MED CT) NO KNOWN ALLERGIES [facility] ENCOUNTERS ADMIT/DISCHARGE ACCOUNT NUMBER ADMITTING ENCOUNTER CLASS LOC ATION SOURCE 11/23/2023 [id number] [facility]CTION[facility] STATUS No Functional Status Records Found EQUIPMENT No Equipment Records Found PAYERS ENCOUNTER GUARANTOR PAYER SUBSCRIBER SOURCE 11/23/2023 LALA POLLACK IIDOB: [place], [place] [address]Ehw: (RL) Primary [facility] [place] RESIDENTPolicy Number: [id number] Date:2023-04-29 LALA POLLACK IIDOB: [id number] [place], [place] [address]Dra: (HP) [facility] SOCIAL HISTORY No Social History Records Found FAMILY HISTORY No Family History Records Found No Status Records Found ADVANCE DIRECTIVES No Advanced Directives Records Found INFORMATION SOURCE DATE CREATED AUTHOR AUTHOR'S RAMONE ATION 12/25/2023 [facility]
--- NOTE | 2023-12-25 13:21 | P.HP_ITS ---
H&P: HPI History of Present Illness Chief complaint: FALL WEAKNESS CONFUSION Narrative: patient is a 73-year-old male with past medical history of gout, hypertension and chronic obstructive pulmonary disease. He reports he is a daily smoker, and lives home alone. He denies having any issues taking care of himself but reports that his daughter brought him to the Emergency Room because he had been weak. After workup in the Emergency Room he was found to be positive for COVID. patient states that he has a productive cough but has a cough daily due to his smoking. He denies any shortness of breath, in the Emergency Room he was found to be hypoxic at eighty-seven percent on room air so 2 L of nasal cannula was applied. On admission exam patient's oxygen was on the side of his face he was actively coughing but denies any production of sputum any fevers chills, nausea vomiting diarrhea, chest pain or shortness of breath. Review of Systems ROS Narrative ROS: a complete review of systems were reviewed with patient and are positive as below or listed in History of Chief Complaint. General: no fever, chills, night sweats Head: no headache, trauma, visual changes, nausea or vomiting Skin: no reported rashes, itching or sores Eyes: no blurriness of vision Ears: no reported hearing loss, vertigo, earache, or tinnitus Throat: no sore throat, hoarseness, swelling of neck, or tongue pain Heart: no chest pain Lungs: no shortness of breath or dry cough GI: no diarrhea or vomiting/nausea Urinary: no urinary urgency, frequency or pain Neuro: no numbness or tingling HEM: no bleeding issues or bruising ENDO: no thyroid problems Psych: no anxiety or depression PFSH [facility] Medical History (Updated 12/25/23 @ 17:56 by Cherise Chan DO) HTN (hypertension) ?I10 - Essential (primary) hypertension (ICD-10) COPD (chronic obstructive pulmonary disease) ?J44.9 - Chronic obstructive pulmonary disease, unspecified (ICD-10) Ankle sprain ?S93.409A - Sprain of unspecified ligament of unspecified ankle, initial encounter (ICD-10) Inability to ambulate due to ankle or foot ?R26.2 - Difficulty in walking, not elsewhere classified (ICD-10) Surgical History Aortic valve replaced ?Z95.2 - Presence of prosthetic heart valve (ICD-10) History of open heart surgery ?Z98.890 - Other specified postprocedural states (ICD-10) Family History Mother Family history of cancer Family history of hypertension Father Family history of cancer Family history of myocardial infarction Family history of hypertension Social History Within the past year, how often did you have a drink containing alcohol: never Within the past year, how often did you have six or more drinks on one occasion: never Score interpretation: A score less than 4 is consistent with normal alcohol consumption. Smoking status: Former smoker Second hand tobacco smoke exposure: Yes Non-prescribed substance use: denies use Previous occupational history: retired Known occupational exposures/hazards: No Highest level of school completed/degree received: high school graduate Do you want help with school or training: No Are you now , , , , never or living with a partner: In a typical week, how many times do you talk on the telephone with family, friends, or neighbors: 3 or more times per week How often do you get together with friends or relatives: 3 or more times per week How often do you attend jainism or lutheran services: never Do you belong to any clubs or organizations such as jainism groups unions, fraternal or athletic groups, or school groups: no Total score: 1 Score interpretation: A score of less than or equal to 1 indicates the most socially isolated. Little interest or pleasure in doing things: not at all Feeling down, depressed, or hopeless: not at all Feel stressed/tense/nervous/anxious/difficulty sleeping: not at all Due to disability, difficulty making decisions: No Do you think of yourself as: straight/heterosexual Gender Identity: male Meds Home Medications and Allergies Home Medications Medication Instructions Recorded Confirmed Type aspirin 81 mg tablet,delayed 81 mg PO DAILY 10/20/23 12/25/23 History release (Adult Aspirin Regimen) carvedilol 25 mg tablet (Coreg) 25 mg PO DAILY 10/20/23 12/25/23 History albuterol sulfate 90 mcg/actuation 1 puff inhalation Q4H PRN 12/25/23 12/25/23 History aerosol inhaler (Ventolin HFA) shortness of breath or wheezing allopurinol 100 mg tablet 300 mg PO DAILY 12/25/23 12/25/23 History Allergies Allergy/AdvReac Type Severity Reaction Status Date / Time No Known Drug Allergies Allergy Verified 10/20/23 16:35 Exam Narrative Exam Narrative: General: Patient is alert, and oriented to person, place and time with normal affect, proper hygiene Skin: no visible rashes, or ulcers Head: atraumatic, acephalic Eyes: PERRLA, no nystagmus present, conjunctiva clear, no scleral icterus Ears: diminished gross auditory acuity Heart: Normal rate and rhythm, no murmurs/rubs/gallops Lungs: audible wheezes, crackles and dimnished breath sounds all lung ascencio Abdomen: Normal audible bowel sounds, no distension, No palpable masses, no organomegaly, no rebound/guarding/ or rigidity Musculoskeletal: no swelling bilateral lower extremities Neuro: CN II-X grossly intact Constitutional Vital Signs, click to edit/add: Last Vital Signs Temp 97.8 F 12/25/23 13:01 Pulse 86 12/25/23 13:01 Resp 18 12/25/23 13:01 BP 145/89 H 12/25/23 12:31 Pulse Ox 99 12/25/23 13:01 O2 Del Method Nasal Cannula 12/25/23 13:01 O2 Flow Rate 2 12/25/23 13:01 Results Labs Labs: Short CBC 12/25/23 Range/Units 08:45 WBC 6.0 (4.0-11.0) 10^3/uL Hgb 13.8 L (14.0-18.0) g/dL Hct 42.0 (42.0-54.0) % Plt Count 222 (150-450) 10^3/uL BMP 12/25/23 08:45 Sodium 135 L Potassium 4.0 Chloride 97 L Carbon Dioxide 30.1 BUN 19.0 H Creatinine 1.40 H Glucose 112 H Calcium 9.3 Liver Function 12/25/23 Range/Units 08:50 Total Bilirubin 1.1 H (0.2-1.0) mg/dL Direct Bilirubin 0.4 H (0.0-0.2) mg/dL AST 31 (15-37) U/L ALT 37 (16-63) U/L Alkaline Phosphatase 133 H (46-116) U/L Albumin 3.6 (3.4-5.0) g/dL Urine 12/25/23 Range/Units 08:40 Urine Color Dk. yellow (YELLOW) Urine Clarity Clear (CLEAR) Urine pH 5.5 (5.0-9.0) Ur Specific [place] >=1.030 A (1.005-1.025) Urine Protein 30 A (NEG/TRACE) mg/dL Urine Glucose (UA) Negative (NEGATIVE) mg/dL Assessment and Plan Assessment and Plan (1) Acute bronchitis due to COVID-19 virus: Assessment and Plan: will place on Paxlovid, cough suppressant, and oxygen therapy. currenty requiring 2 L NC for sats 87%. Albuterol inhaler as needed. OPEP therapy (2) Generalized weakness: Assessment and Plan: continue to monitor electrolytes, most likely viral infection related. PT/OT consult (3) HTN (hypertension): Assessment and Plan: continue coreg Qualifiers: Hypertension type: primary hypertension Qualified Code(s): I10 - Essential (primary) hypertension (4) COPD (chronic obstructive pulmonary disease): Assessment and Plan: continue inhaler, does not want nicotine patch right now Qualifiers: COPD type: chronic bronchitis Chronic bronchitis type: unspecified Qualified Code(s): J42 - Unspecified chronic bronchitis Plan patient is a full code Lovenox for dvt prophylaxis patient is in observation status and is not expected to stay more than 2 midnights.
[2023-12-25] MEDS: ENOXAPARIN SODIUM 40 MG/0.4 ML SYRINGE SUBQ (16:05)
[2023-12-25] MEDS: LACTATED RINGER'S SOLUTION 1,000 ML 50 ML IV (16:06)
--- NOTE | 2023-12-25 20:58 | RESP.RT ---
Sp02 88% on Room Air, Placed pt on 1L nasal cannula and Sp02 incread to 94%
[2023-12-25] MEDS: ACETAMINOPHEN 325 MG TABLET 650 MG PO (23:50)
[2023-12-26] VITALS (20 sets, daily range): BP systolic 113–146; BP diastolic 70–95; PULSE 54–84; RESP 18–20; TEMP 36.3–37.4; O2SAT 92–98
--- NOTE | 2023-12-26 04:28 | RESP.RT ---
titrated down to room air
[2023-12-26 05:42] LABS: Basophils Percent Auto 0.6 % (0.2-2.0); Eosinophils Percent Auto 0.4 % (0.9-7.0); Hemoglobin 11.9 g/dL (14.0-18.0); Immature Granulocytes Abs Auto 0.02 10^3/uL (0.00-0.03); Immature Granulocytes Pct Auto 0.4 % (0.0-0.5); Lymphocytes Absolute Auto 0.7 10^3/uL (1.2-3.8); Lymphocytes Percent Auto 13.7 % (20.5-60.0); Mean Corpuscular HGB Conc 32.2 g/dL (29.9-35.2); Mean Corpuscular Hemoglobin 28.9 pg (25.9-34.0); Mean Corpuscular Volume 89.8 fL (80.0-94.0); Mean Platelet Volume 10.2 fL (9.5-13.5); Monocytes Absolute Auto 1.4 10^3/uL (0.3-0.8); Monocytes Percent Auto 26.6 % (1.7-12.0); Neutrophils Absolute Auto 3.1 10^3/uL (1.4-6.5); Neutrophils Percent Auto 58.3 % (43.0-75.0); Platelet Count 185 10^3/uL (150-450); Red Blood Count 4.12 10^6/uL (4.70-6.10); Red Cell Distribution Width 13.6 % (11.0-15.0); White Blood Count 5.3 10^3/uL (4.0-11.0)
[2023-12-26 06:10] LABS: Alanine Aminotransferase 31 U/L (16-63); Albumin Globulin Ratio 0.7; Albumin Level 2.9 g/dL (3.4-5.0); Alkaline Phosphatase 106 U/L (46-116); Anion Gap 7.9; Aspartate Amino Transferase 48 U/L (15-37); BUN Creatinine Ratio 17.1; Bilirubin Total 0.9 mg/dL (0.2-1.0); Calcium 8.6 mg/dL (8.5-10.1); Carbon Dioxide 29.9 mmol/L (21.0-32.0); Chloride 102 mmol/L (98-107); Estimated GFR (African America >60 (>=60); Estimated GFR (Non-African Ame 58 (>=60); Globulin 4.2 g/dL; Glucose 86 mg/dL (74-106); Magnesium 1.9 mg/dL (1.8-2.4); Potassium 3.8 mmol/L (3.5-5.1); Sodium 136 mmol/L (136-145); Thyroid Stimulating Hormone 0.769 uIU/mL (0.358-3.740); Total Protein 7.1 g/dL (6.4-8.2)
--- NOTE | 2023-12-26 08:54 | PM.PN ---
Progress Note: Subjective Subjective Interval history: patient notes improvement in symptoms today. Still with coughing and wheezing, no fevers, no chills, no n/v/d. Exam Narrative Exam Narrative: General: Patient is alert, and oriented to person, place and time with normal affect, proper hygiene Skin: no visible rashes, or ulcers Head: atraumatic, acephalic Eyes: PERRLA, no nystagmus present, conjunctiva clear, no scleral icterus Ears: diminished gross auditory acuity Heart: Normal rate and rhythm, no murmurs/rubs/gallops Lungs: audible wheezes, crackles and diminished breath sounds all lung ascencio Abdomen: Normal audible bowel sounds, no distension, No palpable masses, no organomegaly, no rebound/guarding/ or rigidity Musculoskeletal: no swelling bilateral lower extremities Neuro: CN II-X grossly intact Constitutional Vital Signs, click to edit/add: Last Vital Signs Temp 98.6 F 12/26/23 06:00 Pulse 79 12/26/23 07:48 Resp 18 12/26/23 06:00 BP 146/74 H 12/26/23 06:00 Pulse Ox 94 L 12/26/23 06:00 O2 Del Method Room Air 12/26/23 06:00 O2 Flow Rate 1 12/26/23 04:28 Progress Note: Objective Labs Labs: Short CBC 12/25/23 12/26/23 Range/Units 08:45 05:25 WBC 6.0 5.3 (4.0-11.0) 10^3/uL Hgb 13.8 L 11.9 L (14.0-18.0) g/dL Hct 42.0 37.0 L (42.0-54.0) % Plt Count 222 185 (150-450) 10^3/uL BMP 12/25/23 12/26/23 08:45 05:25 Sodium 135 L 136 Potassium 4.0 3.8 Chloride 97 L 102 Carbon Dioxide 30.1 29.9 BUN 19.0 H 21.0 H Creatinine 1.40 H 1.23 Glucose 112 H 86 Calcium 9.3 8.6 Liver Function 12/25/23 12/26/23 Range/Units 08:50 05:25 Total Bilirubin 1.1 H 0.9 (0.2-1.0) mg/dL Direct Bilirubin 0.4 H (0.0-0.2) mg/dL AST 31 48 H (15-37) U/L ALT 37 31 (16-63) U/L Alkaline Phosphatase 133 H 106 (46-116) U/L Albumin 3.6 2.9 L (3.4-5.0) g/dL Urine 12/25/23 Range/Units 08:40 Urine Color Dk. yellow (YELLOW) Urine Clarity Clear (CLEAR) Urine pH 5.5 (5.0-9.0) Ur Specific [place] >=1.030 A (1.005-1.025) Urine Protein 30 A (NEG/TRACE) mg/dL Urine Glucose (UA) Negative (NEGATIVE) mg/dL Progress Note: A&P Assessment and Plan (1) Acute bronchitis due to COVID-19 virus: Assessment and Plan: will place on Paxlovid, cough suppressant, and oxygen therapy. room air. Albuterol inhaler as needed. OPEP therapy will add azith and solumedrol for copd exacerbation component (2) Generalized weakness: Assessment and Plan: continue to monitor electrolytes, most likely viral infection related. PT/OT consult (3) HTN (hypertension): Assessment and Plan: continue coreg Qualifiers: Hypertension type: primary hypertension Qualified Code(s): I10 - Essential (primary) hypertension (4) COPD (chronic obstructive pulmonary disease): Assessment and Plan: continue inhaler, does not want nicotine patch right now Qualifiers: COPD type: chronic bronchitis Chronic bronchitis type: unspecified Qualified Code(s): J42 - Unspecified chronic bronchitis Plan patient is a full code Lovenox for dvt prophylaxis patient is in observation status and is not expected to stay more than 2 midnights.
[2023-12-26] MEDS: ALLOPURINOL 100 MG TABLET 300 MG PO (10:09)
[2023-12-26] MEDS: ASPIRIN 81 MG TABLET.DR PO (10:09)
[2023-12-26] MEDS: CARVEDILOL 25 MG TABLET PO (10:10)
[2023-12-26] MEDS: METHYLPREDNISOLONE SOD SUCC PF 40 MG/ML VIAL IVP (16:38)
[2023-12-26] MEDS: AZITHROMYCIN 500 MG in 0.9 % SODIUM CHLORIDE 250 ML 250 MG IV (16:38)
[2023-12-26] MEDS: ENOXAPARIN SODIUM 40 MG/0.4 ML SYRINGE SUBQ (16:38)
[2023-12-26] MEDS: IPRATROPIUM/ALBUTEROL SULFATE 3 ML AMPUL.NEB IH (23:26)
[2023-12-27] VITALS (13 sets, daily range): BP systolic 116–124; BP diastolic 68–72; PULSE 50–90; RESP 18–20; TEMP 36.8; O2SAT 92–97
[2023-12-27] MEDS: METHYLPREDNISOLONE SOD SUCC PF 40 MG/ML VIAL IVP ×2 (01:12→08:59)
[2023-12-27] MEDS: IPRATROPIUM/ALBUTEROL SULFATE 3 ML AMPUL.NEB IH ×3 (04:27→17:28)
[2023-12-27 05:23] LABS: Hematocrit 38.6 % (42.0-54.0); Hemoglobin 12.8 g/dL (14.0-18.0); Mean Corpuscular HGB Conc 33.2 g/dL (29.9-35.2); Mean Corpuscular Hemoglobin 29.3 pg (25.9-34.0); Mean Corpuscular Volume 88.3 fL (80.0-94.0); Mean Platelet Volume 10.3 fL (9.5-13.5); Platelet Count 212 10^3/uL (150-450); Red Blood Count 4.37 10^6/uL (4.70-6.10); Red Cell Distribution Width 13.2 % (11.0-15.0); White Blood Count 1.8 10^3/uL (4.0-11.0)
[2023-12-27 06:05] LABS: Alanine Aminotransferase 28 U/L (16-63); Albumin Globulin Ratio 0.7; Albumin Level 2.9 g/dL (3.4-5.0); Alkaline Phosphatase 106 U/L (46-116); Anion Gap 7.4; Aspartate Amino Transferase 40 U/L (15-37); BUN Creatinine Ratio 18.9; Bilirubin Total 0.8 mg/dL (0.2-1.0); Calcium 8.6 mg/dL (8.5-10.1); Carbon Dioxide 28.6 mmol/L (21.0-32.0); Chloride 101 mmol/L (98-107); Estimated GFR (African America >60 (>=60); Estimated GFR (Non-African Ame >60 (>=60); Globulin 4.4 g/dL; Glucose 126 mg/dL (74-106); Sodium 133 mmol/L (136-145); Total Protein 7.3 g/dL (6.4-8.2)
[2023-12-27 06:19] LABS: Lymphocytes Absolute Manual 0.21 10^3/uL (1.20-3.80); Segmented Neut Absolute Manual 1.56 10^3/uL (1.4-6.5); Toxic Granulation 4+
--- NOTE | 2023-12-27 08:39 | PM.DS1 ---
DS: Providers Provider Date of admission: 12/25/23 12:42 Primary care physician: NAN ELDRIDGE Admitting clinician: Cherise Chan Consults: 12/25/23 13:13 Occupational Therapy Eval and Treat Routine Reason for consultation: weakness Has provider been notified: No Physical Therapy Eval and Treat Routine Reason for consultation: weakness Has provider been notified: No Discharging clinician: Cherise Chan DS: Diagnosis Discharge Diagnosis (1) Acute bronchitis due to COVID-19 virus: (2) Generalized weakness: (3) HTN (hypertension): Qualifiers: Hypertension type: primary hypertension Qualified Code(s): I10 - Essential (primary) hypertension (4) COPD (chronic obstructive pulmonary disease): Qualifiers: COPD type: chronic bronchitis Chronic bronchitis type: unspecified Qualified Code(s): J42 - Unspecified chronic bronchitis DS: Summary Hospital Course Hospital Course: patient is a 73-year-old male with past medical history of gout, hypertension and chronic obstructive pulmonary disease. He reports he is a daily smoker, and lives home alone. He denies having any issues taking care of himself but reports that his daughter brought him to the Emergency Room because he had been weak. After workup in the Emergency Room he was found to be positive for COVID. patient states that he has a productive cough but has a cough daily due to his smoking. He denies any shortness of breath, in the Emergency Room he was found to be hypoxic at eighty-seven percent on room air so 2 L of nasal cannula was applied. He was admitted and placed on Paxlovid. At the time of discharge he was not requiring oxygen and was saturating normally on room air. on 12/26/23 I added solumedrol and azithromycin and cough suppressant. He will be discharged home on the remainder of Paxlovid pack, 4 days of azithromycin 250mg daily, and prednisone 20mg BID x 5 days. He will be going home with home health services. He is to return to the hospital with any worsening or new symptoms. He may use Tylenol or Motrin for fevers, body aches if needed. He will follow closely with his PCP. Status at Discharge Functional status at discharge: uses cane/walker Time Spent with Patient Time attestation: Total time spent providing and/or coordinating discharge services: Time spent: greater than 30 minutes Exam Narrative Exam Narrative: General: Patient is alert, and oriented to person, place and time with normal affect, proper hygiene Skin: no visible rashes, or ulcers Head: atraumatic, acephalic Eyes: PERRLA, no nystagmus present, conjunctiva clear, no scleral icterus Ears: diminished gross auditory acuity Heart: Normal rate and rhythm, no murmurs/rubs/gallops Lungs: slight wheezes, crackles and improved breath sounds all lung ascencio Abdomen: Normal audible bowel sounds, no distension, No palpable masses, no organomegaly, no rebound/guarding/ or rigidity Musculoskeletal: no swelling bilateral lower extremities Neuro: CN II-X grossly intact Constitutional Vital Signs, click to edit/add: Last Vital Signs Temp 98.2 F 12/27/23 05:52 Pulse 54 L 12/27/23 07:00 Resp 18 12/27/23 05:52 BP 116/68 12/27/23 05:52 Pulse Ox 92 L 12/27/23 05:52 O2 Del Method Room Air 12/27/23 05:52 O2 Flow Rate 1 12/26/23 04:28 DS: Data Data Completed and Pending Labs on day of discharge: Labs from last 24 hours 12/27/23 05:05 WBC 1.8 L RBC 4.37 L Hgb 12.8 L Hct 38.6 L MCV 88.3 MCH 29.3 MCHC 33.2 RDW 13.2 Plt Count 212 MPV 10.3 Seg Neuts % (Manual) 87.0 Band Neutrophils % 1.0 Lymphocytes % (Manual) 12.0 L Monocytes % (Manual) 0.0 L Eosinophils % (Manual) 0.0 L Basophils % (Manual) 0.0 L Neutrophils # (Manual) 1.56 Band Neutrophils # 0.0 Lymphocytes # (Manual) 0.21 L Monocytes # (Manual) 0.00 L Eosinophils # (Manual) 0.00 Basophils # (Manual) 0.00 Toxic Granulation 4+ Sodium 133 L Potassium 4.0 Chloride 101 Carbon Dioxide 28.6 Anion Gap 7.4 BUN 17.0 Creatinine 0.90 Est GFR ( Amer) >60 Est GFR (Non-Af Amer) >60 BUN/Creatinine Ratio 18.9 Glucose 126 H Calcium 8.6 Total Bilirubin 0.8 AST 40 H ALT 28 Alkaline Phosphatase 106 Total Protein 7.3 Albumin 2.9 L Globulin 4.4 Albumin/Globulin Ratio 0.7 Discharge Plan Discharge Disposition: Home Health Service Condition: Good Discharge Medications: New dextromethorphan-guaifenesin 10-100 mg/5 mL Syrup 10 ml PO Q8H PRN (Reason: Cough) 5 Days Qty: 150 0RF Paxlovid 300 mg (150 mg x 2)-100 mg Tablets,Dose Pack 3 ea PO BID 4 Days Qty: 24 0RF Rx Instructions: finishing remaining pack given at discharge azithromycin 250 mg tablet 250 mg PO DAILY 4 Days Qty: 4 0RF prednisone 20 mg tablet 20 mg PO BID 5 Days Qty: 10 0RF Continued aspirin [Adult Aspirin Regimen] 81 mg tablet,delayed release (DR/EC) 81 mg PO DAILY carvedilol [Coreg] 25 mg tablet 25 mg PO DAILY Rx Instructions: must administer with a meal/food albuterol sulfate [Ventolin HFA] 90 mcg/actuation HFA aerosol inhaler 1 puff INHALATION Q4H PRN (Reason: shortness of breath or wheezing) allopurinol 100 mg tablet 300 mg PO DAILY Activity: increase activity as tolerated Diet: advance to your usual diet Forms: Portal Instructions Follow Up Appointments: Jan.04 @ 9:30am with Dr. Eldridge [phone] Discharge location: Home with Home health services
[2023-12-27] MEDS: CARVEDILOL 25 MG TABLET PO (08:59)
[2023-12-27] MEDS: ALLOPURINOL 100 MG TABLET 300 MG PO (08:59)
[2023-12-27] MEDS: ASPIRIN 81 MG TABLET.DR PO (08:59)
--- NOTE | 2023-12-27 10:50 | SWNOTE1 ---
JONI met with pt to discuss dc needs and the need for home health. Pt lives at home alone and his daughter does check on him as needed. Pt worked with therapy and would benefit from home health. JONI spoke with pt and he has had HH in past, could not remember company. JONI reviewed star ratings list from medicare.gov. He does not have a preference and he would like SW to call daughter. SW reviewed [employer] form with pt, pt had no questions at this time. Pt signed form, orginal given to pt and copy placed in chart. JONI called and spoke with pt's daughter. He had [facility] in past, but they are closed. Pt's daughter does not have a preference and thankful he will have it. Pt's daughter will be transporting and will be here around 3:30-4:30, JOIN to let nursing know. JONI reached out to [facility] and [facility] to see if they accept his insurance.
--- NOTE | 2023-12-27 10:55 | CM.NOTE ---
Rounds made with Dr. Chan, pt will discharge to home this afternoon. Pt states his daughter would pick him up.
--- NOTE | 2023-12-27 10:59 | CM.NOTE ---
Dr. Chan also discussed with pt about PT recommendations (Skilled vs Home Health services). Pt was in agreement with HH services, shreya Self.
--- NOTE | 2023-12-27 11:52 | SWNOTE1 ---
[facility] does accept his insurance. Referral sent.
--- NOTE | 2023-12-27 12:30 | SWNOTE1 ---
[facility] is not able to accept. SW to attempt another company.
--- NOTE | 2023-12-27 13:53 | ECG_ITS ---
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
--- NOTE | 2023-12-27 14:08 | SWNOTE1 ---
JONI spoke to Cathleen at [facility] and they verified the insurance and left message for pt's PCP to see if they will follow. Everything looks good for them to accept as long as PCP will follow. JONI sent over discharge orders.
--- NOTE | 2023-12-27 14:09 | SWNOTE1 ---
Discharge orders sent to [facility].
[2023-12-27 14:35] LABS: Anion Gap 12.4; BUN Creatinine Ratio 21.9; Calcium 8.4 mg/dL (8.5-10.1); Carbon Dioxide 27.5 mmol/L (21.0-32.0); Chloride 102 mmol/L (98-107); Estimated GFR (African America >60 (>=60); Estimated GFR (Non-African Ame >60 (>=60); Glucose 210 mg/dL (74-106); Magnesium 1.9 mg/dL (1.8-2.4); Potassium 3.9 mmol/L (3.5-5.1); Sodium 138 mmol/L (136-145)
--- NOTE | 2023-12-28 11:43 | CM.DCFOLLOWU ---
Person spoke with: patient's daughter How are you feeling? well, sleepy, possibly due to new meds How is your pain? no pain Did you understand your discharge instructions? yes Do you have any questions about your discharge instructions? no Were you given any prescriptions at discharge? yes Were you able to get your prescriptions filled?yes Do you understand how to take your medications as ordered? yes Do you have any questions about your follow up appointment and do you plan to keep your follow up appointment? no questions, reviewed all follow ups Is there anything else that you would like to discuss? no Questions/Comments/Concerns/Other:N/A
== END 2023-12-27 19:45 | disposition home health service (06) ==
LOC: ER 10:07 → MS 12:46
PROVIDERS: Admitting Provider Family Medicine; Emergency Provider Emergency Medicine; PCP Family Medicine; Visit Provider Family Medicine
DX: U07.1 COVID-19 (principal); J20.8 Acute bronchitis due to other specified organisms; R53.1 Weakness; I10 Essential (primary) hypertension; M10.9 Gout, unspecified; J44.0 Chronic obstructive pulmonary disease with (acute) lower respiratory infection; R00.1 Bradycardia, unspecified; R00.8 Other abnormalities of heart beat; F17.210 Nicotine dependence, cigarettes, uncomplicated; Z95.2 Presence of prosthetic heart valve; Z91.81 History of falling; Z79.899 Other long term (current) drug therapy; Z79.82 Long term (current) use of aspirin; Z98.890 Other specified postprocedural states
CPT/HCPCS: 36415; 71045; 80048; 80053; 80076; 80307; 80320; 81001; 83735; 84443; 84484; 85007; 85025; 85027; 87040; 87086; 87804; 87811; 93005; 94640; 94667; 94668; 94761; 96365; 96372; 96375; 96376; 97161; 97165; 97530; 99285; G0378; J0456; J1650; J2920

== ENCOUNTER 2023-12-31 22:20 | Observation (INO) | payer MEDICARE, SELFPAY ==
[2023-12-31] VITALS (12 sets, daily range): BP systolic 140–153; BP diastolic 89–92; PULSE 53–60; RESP 12–24; TEMP 36.8; O2SAT 95–97; BMI 29.1
--- NOTE | 2023-12-31 22:27 | ECG_ITS ---
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
--- OUTSIDE RECORDS SUMMARY | 2023-12-31 22:36 | XMS_ITS | CCD ---
Author Name Unknown Address [address] [place] [address] Organization [facility] Care Team Providers Care Rn Lactation Consultant Name Role Phone NAN CANTOR Referring Unavailable NO PCP, NO PCP Primary Care Unavailable Problems Problem Classification Problem Date Documented Da te Episodic/Chronic Delirium, dementia, and amnestic and other cognitive disorders (1 source) Age-related physical debility; Translations: [Age-related physical debility] Onset: 11-23-2023 Chronic Encounters Encounter Date Encounter Type Care Provider Facility Start: 11-23-[address] [facility] Payers Date Payer Category Payer Medicare [id number] 1950 Unknown [id number] Summary Purpose Family History No Family History Records Found Advance Directives No Advanced Directives Records Found Additional Source Comments (unrecognized sect ion and content) No Status Records Found INFORMATION SOURCE (unrecogn ized section and content) DATE CREATED AUTHOR 12/26/[address] [facility] FOR RECORDS PERTAINING TO PATIENTS WHO ARE OR HAVE BEEN ENROLLED IN A CHEMICAL DEPENDENCY/SUBSTANCEABUSE PROGRAM, SOME INFORMATION MAY BE OMITTED. This clinical summary was aggregated from multiple sources. Caution should be exercised in using it in the provision of clinical care. This summary normalizes information from multiple sources, and as a consequence, information in this document may materially change the coding, format and clinical context of patient data. In addition, data may be omitted in some cases. CLINICAL DECISIONS SHOULD BE BASED ON THE PRIMARY CLINICAL RECORDS. [facility] [employer] [facility]. provides no warranty or guarantee of the accuracy or completeness of information in this document.
--- NOTE | 2023-12-31 22:58 | ED.DIZZY1 ---
HPI - Dizziness General Chief Complaint: Dizziness Stated Complaint: Dizziness Time Seen by Provider: 12/31/23 22:54 Source: patient Mode of arrival: ambulance Limitations: no limitations History of Present Illness HPI Narrative: patient presents complaining of dizziness. States has been present all day. Room spinning. States similar episode about 4 years ago. No headache. positive nausea and dry heaving. Denies weakness or numbness of his extremities Fell at home due to dizziness. No chest pain or dyspnea MD elicited complaint: Reports dizziness Related Data Home Medications Medication Instructions Recorded Confirmed aspirin 81 mg tablet,delayed 81 mg PO DAILY 10/20/23 01/01/24 release (Adult Aspirin Regimen) carvedilol 25 mg tablet (Coreg) 25 mg PO DAILY 10/20/23 01/01/24 albuterol sulfate 90 mcg/actuation 1 puff inhalation Q4H PRN 12/25/23 01/01/24 aerosol inhaler (Ventolin HFA) shortness of breath or wheezing allopurinol 100 mg tablet 300 mg PO DAILY 12/25/23 01/01/24 Previous Rx's Medication Instructions Recorded dextromethorphan-guaifenesin 10 10 ml PO Q8H PRN Cough 5 days #150 12/27/23 mg-100 mg/5 mL oral syrup mL ciprofloxacin HCl 500 mg tablet 500 mg PO BID #14 tabs 01/01/24 meclizine 12.5 mg tablet 25 mg (2 x 12.5 mg) PO TID PRN 01/01/24 Vertigo #30 tabs prednisone 10 mg tablet 50 mg (5 x 10 mg) PO DAILY #47 tabs 01/01/24 Allergies Allergy/AdvReac Type Severity Reaction Status Date / Time No Known Drug Allergies Allergy Verified 10/20/23 16:35 Review of Systems ROS Status of ROS 10 or more systems reviewed and unremarkable except as noted in history and below [facility] Medical History (Updated 01/01/24 @ 01:05 by Rajeev Finley MD) HTN (hypertension) ?I10 - Essential (primary) hypertension (ICD-10) COPD (chronic obstructive pulmonary disease) ?J44.9 - Chronic obstructive pulmonary disease, unspecified (ICD-10) Ankle sprain ?S93.409A - Sprain of unspecified ligament of unspecified ankle, initial encounter (ICD-10) Inability to ambulate due to ankle or foot ?R26.2 - Difficulty in walking, not elsewhere classified (ICD-10) Surgical History Aortic valve replaced ?Z95.2 - Presence of prosthetic heart valve (ICD-10) History of open heart surgery ?Z98.890 - Other specified postprocedural states (ICD-10) Family History Mother Family history of cancer Family history of hypertension Father Family history of cancer Family history of myocardial infarction Family history of hypertension Social History Within the past year, how often did you have a drink containing alcohol: never Within the past year, how often did you have six or more drinks on one occasion: never Score interpretation: A score less than 4 is consistent with normal alcohol consumption. Smoking status: Former smoker Second hand tobacco smoke exposure: Yes Non-prescribed substance use: denies use Previous occupational history: retired Known occupational exposures/hazards: No Highest level of school completed/degree received: high school graduate Do you want help with school or training: No Are you now , , , , never or living with a partner: In a typical week, how many times do you talk on the telephone with family, friends, or neighbors: 3 or more times per week How often do you get together with friends or relatives: 3 or more times per week How often do you attend yazdanism or confucianism services: never Do you belong to any clubs or organizations such as yazdanism groups unions, fraternal or athletic groups, or school groups: no Total score: 1 Score interpretation: A score of less than or equal to 1 indicates the most socially isolated. Little interest or pleasure in doing things: not at all Feeling down, depressed, or hopeless: not at all Feel stressed/tense/nervous/anxious/difficulty sleeping: not at all Due to disability, difficulty making decisions: No Do you think of yourself as: straight/heterosexual Gender Identity: male Exam Constitutional Vital Signs, click to edit/add: Last Vital Signs Temp 98 F 01/01/24 13:32 Pulse 89 01/01/24 15:43 Resp 20 01/01/24 13:32 BP 134/80 01/01/24 13:32 Pulse Ox 93 L 01/01/24 13:32 O2 Del Method Room Air 01/01/24 13:32 Common normals: no apparent distress, average body habitus, oriented x3, no limitations, healthy appearing, alert and well nourished [facility] Common normals: normocephalic and head/scalp atraumatic Eye Common normals: EOMs intact bilaterally Other: nystagmus bilat gaze Respiratory Common normals: normal respiratory effort, no retractions and no use of accessory muscles Cardio Common normals: S1 normal heart sound and S2 normal heart sound Rate: bradycardic GI Common normals: Normal to inspection, nondistended, normoactive bowel sounds present, soft to palpation and non-tender Extremity Common normals: normal to inspection and full ROM Neuro Common normals: oriented x3, CN's II-XII intact bilaterally, moves all extremities and no focal motor deficits Psych Appearance: grossly normal Course Course Hospital Course: Patient admitted with vertigo. Definite spinning sensation. Placed on steroids, meclizine, antibiotics. Overall is much improved. Blood pressure is improving as well. Patient is able to ambulate without difficulty we discharged home in improving condition. Medications see list. Follow-up with PCP within the next week. Just prior to patient being discharged he had a possible run of nonsustained V. tach versus idioventricular rhythm. Patient was asymptomatic. At this point we will discharge patient home with Holter if no further episodes later in the day Vital Signs Vital signs: Vital Signs Temperature 98.2 F 12/31/23 22:22 Pulse Rate 53 L 12/31/23 22:22 Respiratory Rate 20 12/31/23 22:22 Blood Pressure 153/89 H 12/31/23 22:22 Pulse Oximetry 97 12/31/23 22:22 Oxygen Delivery Method Room Air 12/31/23 22:22 Temperature 98 F 01/01/24 13:32 Pulse Rate 89 01/01/24 15:43 Respiratory Rate 20 01/01/24 13:32 Blood Pressure 134/80 01/01/24 13:32 Pulse Oximetry 93 L 01/01/24 13:32 Oxygen Delivery Method Room Air 01/01/24 13:32 MDM - Dizziness MDM Narrative Medical decision making narrative: patient presents with vertiginous symptoms. States he has had them before. he believes the last time was about 4 years ago. Now presents with vertiginous symptoms ongoing since this AM. Room spinning and associated dry heaving. No headache or extremity weakness. Fell at home because he was dizzy. recently hospitalized for COVID19 and prescribed paxlovid. He is resting comfortably but does have nystagmus . CT brain without acute changes and labs acceptable. No lab findings to explain his presentation. Treated with antivert and ativan and remains dizzy. dizziness improved some but he is not able to get up because of the dizziness Lab Data Labs: Lab Results 12/31/23 12/31/23 Range/Units 23:05 23:11 WBC 9.0 (4.0-11.0) 10^3/uL RBC 4.68 L (4.70-6.10) 10^6/uL Hgb 13.5 L (14.0-18.0) g/dL Hct 41.7 L (42.0-54.0) % MCV 89.1 (80.0-94.0) fL MCH 28.8 (25.9-34.0) pg MCHC 32.4 (29.9-35.2) g/dL RDW 13.0 (11.0-15.0) % Plt Count 230 (150-450) 10^3/uL MPV 10.4 (9.5-13.5) fL Neut % (Auto) 84.3 H (43.0-75.0) % Lymph % (Auto) 7.4 L (20.5-60.0) % [place] % (Auto) 6.9 (1.7-12.0) % Eos % (Auto) 0.2 L (0.9-7.0) % Baso % (Auto) 0.1 L (0.2-2.0) % Neut # (Auto) 7.5 H (1.4-6.5) 10^3/uL Lymph # (Auto) 0.7 L (1.2-3.8) 10^3/uL [place] # (Auto) 0.6 (0.3-0.8) 10^3/uL Eos # (Auto) 0.0 (0.0-0.7) 10^3/uL Baso # (Auto) 0.0 (0.0-0.1) 10^3/uL Abs Immat Gran (auto) 0.10 H (0.00-0.03) 10^3/uL Imm/Tot Granulo (auto) 1.1 H (0.0-0.5) % Sodium 133 L (136-145) mmol/L Potassium 4.4 (3.5-5.1) mmol/L Chloride 102 (98-107) mmol/L Carbon Dioxide 30.3 (21.0-32.0) mmol/L Anion Gap 5.1 BUN 17.0 (7.0-18.0) mg/dL Creatinine 0.93 (0.70-1.30) mg/dL Est GFR ( Amer) >60 (>=60) Est GFR (Non-Af Amer) >60 (>=60) BUN/Creatinine Ratio 18.3 Glucose 118 H (74-106) mg/dL Calcium 8.5 (8.5-10.1) mg/dL Troponin I High Sens 13.6 (4.0-76.1) pg/mL Urine Color Yellow (YELLOW) Urine Clarity Clear (CLEAR) Urine pH 7.5 (5.0-9.0) Ur Specific [place] 1.015 (1.005-1.025) Urine Protein Negative (NEG/TRACE) mg/dL Urine Glucose (UA) Negative (NEGATIVE) mg/dL Urine Ketones Negative (NEGATIVE) mg/dL Urine Occult Blood Negative (NEGATIVE) Urine Nitrite Negative (NEGATIVE) Urine Bilirubin Negative (NEGATIVE) Urine Urobilinogen 1.0 (0.2-1.0) EU/dL Ur Leukocyte Esterase Negative (NEGATIVE) Discharge Plan Discharge Chief Complaint: Dizziness Clinical Impression: Vertigo Patient Disposition: Admitted as Observation Discharge Date/Time: 01/01/24 02:06
--- NOTE | 2023-12-31 23:01 | CT_ITS ---
The [address] [address] Patient Name: LALA POLLACK MRN: [id number] date: 1950 Sex: M Assigned Patient Location: ER Current Patient Location: Accession/Order Number: [id number] Exam Date: 12/31/2023 23:15 Report Date: 12/31/2023 23:41 At the request of: YAMIL CLAYTON Procedure: CT head/brain wo con INDICATION: 73 years old; Male. Dizziness with fall at 10:00 PM this evening. Denies head and neck pain. No loss of consciousness. TECHNIQUE: CT Head (ax/cor/sag reformats). Ionizing radiation dose reduced via iterative reconstruction/FBP blend and body size kV/mA adjustment. Comparison: None FINDINGS: POSTOPERATIVE CHANGES: None. BRAIN PARENCHYMA: No focal lesions. No mass effect. No midline shift or herniation. No intracranial or extra-axial hemorrhage. Normal fry/white differentiation. There are multiple punctate dense calcifications seen within the cortex of both hemispheres. There is no associated mass effect or vasogenic edema. These would be most consistent with a remote inflammatory process VENTRICLES/EXTRA-AXIAL SPACES: Enlarged, consistent with atrophy. The ventricular system is enlarged out of proportion to the size the cortical sulci and a combination of atrophy +/- communicating hydrocephalus is not excluded. No gross evidence of transependymal spread of CSF is seen. SINUSES/MASTOIDS: Mucoperiosteal thickening in the ethmoid sinuses. Lacelike secretions in the maxillary sinus on the right. Nasal septal deviation to the left with spur formation. Mastoids and middle ears are clear. MSK: No displaced or depressed calvarial fracture. Subtle extra cranial soft tissue swelling is seen in the right frontal region. No subjacent fracture is noted. Degenerative changes are present in the TMJ. OTHER: No hyperdense intraluminal thrombus is present. Vascular calcifications are seen. CT/CT head/brain wo con IMPRESSION: 1. No acute intracranial abnormality. No hemorrhage or mass effect. 2. Multiple punctate foci of dystrophic calcification in the cortex of both hemispheres. These findings are most consistent with a remote process such as remote punctate hemorrhage or infection. 3. Subtle small vessel ischemic changes. 4. Atrophy +/- communicating hydrocephalus. 5. Mild soft tissue swelling in the frontal region on the right. No subjacent fracture. Electronically authenticated by: BIENVENIDO WHYTE Date: 12/31/2023 23:41
[2023-12-31 23:21] LABS: Basophils Percent Auto 0.1 % (0.2-2.0); Eosinophils Percent Auto 0.2 % (0.9-7.0); Hematocrit 41.7 % (42.0-54.0); Hemoglobin 13.5 g/dL (14.0-18.0); Immature Granulocytes Pct Auto 1.1 % (0.0-0.5); Lymphocytes Absolute Auto 0.7 10^3/uL (1.2-3.8); Lymphocytes Percent Auto 7.4 % (20.5-60.0); Mean Corpuscular HGB Conc 32.4 g/dL (29.9-35.2); Mean Corpuscular Hemoglobin 28.8 pg (25.9-34.0); Mean Corpuscular Volume 89.1 fL (80.0-94.0); Mean Platelet Volume 10.4 fL (9.5-13.5); Monocytes Absolute Auto 0.6 10^3/uL (0.3-0.8); Monocytes Percent Auto 6.9 % (1.7-12.0); Neutrophils Absolute Auto 7.5 10^3/uL (1.4-6.5); Neutrophils Percent Auto 84.3 % (43.0-75.0); Platelet Count 230 10^3/uL (150-450); Red Blood Count 4.68 10^6/uL (4.70-6.10)
[2023-12-31] MEDS: LORAZEPAM 2 MG/ML 1 ML VIAL 0.5 MG IV (23:35)
[2023-12-31] MEDS: MECLIZINE HCL 12.5 MG TABLET 25 MG PO (23:35)
[2023-12-31 23:39] LABS: Anion Gap 5.1; BUN Creatinine Ratio 18.3; Calcium 8.5 mg/dL (8.5-10.1); Carbon Dioxide 30.3 mmol/L (21.0-32.0); Chloride 102 mmol/L (98-107); Estimated GFR (African America >60 (>=60); Estimated GFR (Non-African Ame >60 (>=60); Glucose 118 mg/dL (74-106); Potassium 4.4 mmol/L (3.5-5.1); Sodium 133 mmol/L (136-145); Troponin I High Sensitivity 13.6 pg/mL (4.0-76.1)
[2024-01-01] VITALS (23 sets, daily range): BP systolic 130–156; BP diastolic 77–86; PULSE 55–89; RESP 15–28; TEMP 36.2–36.6; O2SAT 93–98; BMI 30.9
[2024-01-01 00:30] LABS: Bilirubin Urine NEGATIVE (NEGATIVE); Blood Urine NEGATIVE (NEGATIVE); Clarity Urine CLEAR (CLEAR); Color Urine YELLOW (YELLOW); Glucose Urine UA NEGATIVE (NEGATIVE); Ketones Urine NEGATIVE (NEGATIVE); Leukocyte Esterase Urine NEGATIVE (NEGATIVE); Nitrite Urine NEGATIVE (NEGATIVE); Protein Urine NEGATIVE (NEG/TRACE); Specific Gravity Urine 1.015 (1.005-1.025); pH Urine 7.5 (5.0-9.0)
[2024-01-01 00:33] LABS: Urine Microscopic Indicated NO
--- NOTE | 2024-01-01 02:00 | ECG_ITS ---
The [facility] Test Date: 2024-01-01 Pat Name: LALA POLLACK Department: Room: [facility] Gender: Male Nutrition Coordinator: : 1950 Requested By: [id number] Order Number: [id number] Reading MD: LIANG BILLINGSLEY Measurements Intervals [place] Rate: 58 P: 97 NV: 236 QRS: 34 QRSD: 110 T: 78 QT: 424 QTc: 418 Interpretive Statements SINUS BRADYCARDIA WITH FIRST DEGREE AV BLOCK WITH OCCASIONAL SUPRAVENTRICULAR PREMATURE COMPLEXES Non-Specific T wave inversion in aVL Compared to ECG 12/31/2023 22:27:49 First degree AV block now present T-wave abnormality now present Intraventricular conduction delay no longer present Electronically Signed On 01-02-2024 5:57:08 EST by LIANG BILLINGSLEY
--- OUTSIDE RECORDS SUMMARY | 2024-01-01 02:31 | XMS_ITS | CCD ---
Author Name Unknown Address [address] [place] [address] Organization [facility] Care Team Providers Care Shell Mold Bonder Name Role Phone NAN CANTOR Referring Unavailable NO PCP, NO PCP Primary Care Unavailable Problems Problem Classification Problem Date Documented Da te Episodic/Chronic Delirium, dementia, and amnestic and other cognitive disorders (1 source) Age-related physical debility; Translations: [Age-related physical debility] Onset: 11-23-2023 Chronic Encounters Encounter Date Encounter Type Care Provider Facility Start: 11-23-2023 ambulatory NAN CANTOR [facility] Payers Date Payer Category Payer Medicare [id number] 1950 Unknown [id number] Summary Purpose Family History No Family History Records Found Advance Directives No Advanced Directives Records Found Additional Source Comments (unrecognized sect ion and content) No Status Records Found INFORMATION SOURCE (unrecogn ized section and content) DATE CREATED AUTHOR 12/26/2023 [facility] FOR RECORDS PERTAINING TO PATIENTS WHO ARE [...] BE BASED ON THE PRIMARY CLINICAL RECORDS. [facility] [employer] [facility]. provides no warranty or guarantee of the accuracy or completeness of information in this document.
[2024-01-01] MEDS: 0.9 % SODIUM CHLORIDE 1,000 ML 100 ML IV (02:58)
[2024-01-01] MEDS: ENOXAPARIN SODIUM 40 MG/0.4 ML SYRINGE SUBQ (02:58)
[2024-01-01 06:03] LABS: Basophils Percent Auto 0.1 % (0.2-2.0); Eosinophils Absolute Auto 0.1 10^3/uL (0.0-0.7); Eosinophils Percent Auto 0.7 % (0.9-7.0); Hematocrit 40.2 % (42.0-54.0); Hemoglobin 13.2 g/dL (14.0-18.0); Immature Granulocytes Abs Auto 0.11 10^3/uL (0.00-0.03); Immature Granulocytes Pct Auto 1.2 % (0.0-0.5); Lymphocytes Percent Auto 10.6 % (20.5-60.0); Mean Corpuscular HGB Conc 32.8 g/dL (29.9-35.2); Mean Corpuscular Hemoglobin 29.7 pg (25.9-34.0); Mean Corpuscular Volume 90.3 fL (80.0-94.0); Mean Platelet Volume 11.3 fL (9.5-13.5); Monocytes Absolute Auto 0.9 10^3/uL (0.3-0.8); Monocytes Percent Auto 9.4 % (1.7-12.0); Neutrophils Absolute Auto 7.2 10^3/uL (1.4-6.5); Platelet Count 227 10^3/uL (150-450); Red Blood Count 4.45 10^6/uL (4.70-6.10); Red Cell Distribution Width 12.9 % (11.0-15.0); White Blood Count 9.2 10^3/uL (4.0-11.0)
[2024-01-01 06:24] LABS: Alanine Aminotransferase 37 U/L (16-63); Albumin Globulin Ratio 0.7; Albumin Level 2.9 g/dL (3.4-5.0); Alkaline Phosphatase 90 U/L (46-116); Anion Gap 8.5; Aspartate Amino Transferase 26 U/L (15-37); BUN Creatinine Ratio 16.7; Bilirubin Total 0.6 mg/dL (0.2-1.0); Calcium 8.6 mg/dL (8.5-10.1); Carbon Dioxide 30.7 mmol/L (21.0-32.0); Chloride 102 mmol/L (98-107); Estimated GFR (African America >60 (>=60); Estimated GFR (Non-African Ame >60 (>=60); Globulin 3.9 g/dL; Glucose 87 mg/dL (74-106); Potassium 4.2 mmol/L (3.5-5.1); Sodium 137 mmol/L (136-145); Total Protein 6.8 g/dL (6.4-8.2)
[2024-01-01] MEDS: DEXAMETHASONE SOD PHOS 4 MG/ML VIAL 10 MG IV (08:55)
--- NOTE | 2024-01-01 09:18 | P.HP_ITS ---
H&P: HPI History of Present Illness Chief complaint: Dizziness Narrative: Patient presented to the emergency room with definite vertigo, spinning sensation. Treated in ER without success. Upon floor placed on steroids and meclizine. Patient did improve overnight. He feels like he is back to his baseline. Recent COVID Dx complicating the above Review of Systems ROS Status of ROS 10 or more systems reviewed and unremark able except as noted in history and below [facility] Medical History (Updated 01/01/24 @ 01:05 by Rajeev Finley MD) HTN (hypertension) ?I10 - Essential (primary) hypertension (ICD-10) COPD (chronic obstructive pulmonary disease) ?J44.9 - Chronic obstructive pulmonary disease, unspecified (ICD-10) Ankle sprain ?S93.409A - Sprain of unspecified ligament of unspecified ankle, initial encounter (ICD-10) Inability to ambulate due to ankle or foot ?R26.2 - Difficulty in walking, not elsewhere classified (ICD-10) Surgical History Aortic valve replaced ?Z95.2 - Presence of prosthetic heart valve (ICD-10) History of open heart surgery ?Z98.890 - Other specified postprocedural states (ICD-10) Family History Mother Family history of cancer Family history of hypertension Father Family history of cancer Family history of myocardial infarction Family history of hypertension Social History Within the past year, how often did you have a drink containing alcohol: never Within the past year, how often did you have six or more drinks on one occasion: never Score interpretation: A score less than 4 is consistent with normal alcohol consumption. Smoking status: Former smoker Second hand tobacco smoke exposure: Yes Non-prescribed substance use: denies use Previous occupational history: retired Known occupational exposures/hazards: No Highest level of school completed/degree received: high school graduate Do you want help with school or training: No Are you now , , , , never or living with a partner: In a typical week, how many times do you talk on the telephone with family, friends, or neighbors: 3 or more times per week How often do you get together with friends or relatives: 3 or more times per week How often do you attend sabianist or evangelical services: never Do you belong to any clubs or organizations such as sabianist groups unions, [employer] or athletic groups, or school groups: no Total score: 1 Score interpretation: A score of less than or equal to 1 indicates the most socially isolated. Little interest or pleasure in doing things: not at all Feeling down, depressed, or hopeless: not at all Feel stressed/tense/nervous/anxious/difficulty sleeping: not at all Due to disability, difficulty making decisions: No Do you think of yourself as: straight/heterosexual Gender Identity: male Meds Home Medications and Allergies Home Medications Medication Instructions Recorded Confirmed Type aspirin 81 mg tablet,delayed 81 mg PO DAILY 10/20/23 01/01/24 History release (Adult Aspirin Regimen) carvedilol 25 mg tablet (Coreg) 25 mg PO DAILY 10/20/23 01/01/24 History albuterol sulfate 90 mcg/actuation 1 puff inhalation Q4H PRN 12/25/23 01/01/24 History aerosol inhaler (Ventolin HFA) shortness of breath or wheezing allopurinol 100 mg tablet 300 mg PO DAILY 12/25/23 01/01/24 History dextromethorphan-guaifenesin 10 10 ml PO Q8H PRN Cough 5 days #150 12/27/23 01/01/24 Rx mg-100 mg/5 mL oral syrup mL ciprofloxacin HCl 500 mg tablet 500 mg PO BID #14 tabs 01/01/24 Rx meclizine 12.5 mg tablet 25 mg (2 x 12.5 mg) PO TID PRN 01/01/24 Rx Vertigo #30 tabs prednisone 10 mg tablet 50 mg (5 x 10 mg) PO DAILY #47 tabs 01/01/24 Rx Allergies Allergy/AdvReac Type Severity Reaction Status Date / Time No Known Drug Allergies Allergy Verified 10/20/23 16:35 Exam Constitutional Vital Signs, click to edit/add: Last Vital Signs Temp 97.1 F L 01/01/24 05:45 Pulse 63 01/01/24 08:00 Resp 20 01/01/24 05:45 BP 130/80 01/01/24 05:45 Pulse Ox 98 02/03/24 05:45 O2 Del Method Room Air 01/01/24 05:45 Documenting provider has reviewed patient's vital signs: yes Common normals: no apparent distress Chest Common normals: inspection of chest normal Respiratory Common normals: normal respiratory effort Cardio Common normals: no JVD GI Common normals: Normal to inspection, nondistended, normoactive bowel sounds present Results Labs Labs: Short CBC 12/31/23 01/01/24 Range/Units 23:11 04:09 WBC 9.0 9.2 (4.0-11.0) 10^3/uL Hgb 13.5 L 13.2 L (14.0-18.0) g/dL Hct 41.7 L 40.2 L (42.0-54.0) % Plt Count 230 227 (150-450) 10^3/uL BMP 12/31/23 01/01/24 23:11 04:09 Sodium 133 L 137 Potassium 4.4 4.2 Chloride 102 102 Carbon Dioxide 30.3 30.7 BUN 17.0 15.0 Creatinine 0.93 0.90 Glucose 118 H 87 Calcium 8.5 8.6 Liver Function 01/01/24 Range/Units 04:09 Total Bilirubin 0.6 (0.2-1.0) mg/dL AST 26 (15-37) U/L ALT 37 (16-63) U/L Alkaline Phosphatase 90 (46-116) U/L Albumin 2.9 L (3.4-5.0) g/dL Urine 12/31/23 Range/Units 23:05 Urine Color Yellow (YELLOW) Urine Clarity Clear (CLEAR) Urine pH 7.5 (5.0-9.0) Ur Specific [place] 1.015 (1.005-1.025) Urine Protein Negative (NEG/TRACE) mg/dL Urine Glucose (UA) Negative (NEGATIVE) mg/dL Assessment and Plan Assessment and Plan (1) Vertigo: (2) Acute bronchitis due to COVID-19 virus: (3) HTN (hypertension): Qualifiers: Hypertension type: primary hypertension Qualified Code(s): I10 - Ess ential (primary) hypertension (4) COPD (chronic obstructive pulmonary disease): Qualifiers: COPD type: chronic bronchitis Chronic bronchitis type: unspecified Qualified Code(s): J42 - Unspecified chronic bronchitis Plan Mild bradycardia and uncontrolled hypertension complicated by acute vertigo. Definite spinning sensation per patient. So far improved with the steroids and meclizine. Added antibiotics. At this point patient feels back to his baseline will be discharged home in improving condition. Medications see list. Follow- up with his PCP within the next week. [id number], cough improving Uncontrolled hypertension so far stable today, continue with home medications watch diet COPD-deteriorated secondary to COVID-so far improving though. Possible nonsustained V. tach. Completely asymptomatic. Still on heart monitor. Will send patient home with Holter.
--- NOTE | 2024-01-01 09:18 | PM.DS1 ---
DS: Providers Provider Date of admission: 01/01/24 01:49 Primary care physician: NAN CANTOR Consults: 01/01/24 01:54 Physical Therapy Eval and Treat Routine Reason for consultation: vertigo Has provider been notified: No 01/01/24 01:59 Occupational Therapy Eval and Treat Routine Reason for consultation: vertigo Has provider been notified: No DS: Summary Hospital Course Hospital Course: Patient admitted with vertigo. Definite spinning sensation. Placed on steroids, meclizine, antibiotics. Overall is much improved. Blood pressure is improving as well. Patient is able to ambulate without difficulty we discharged home in improving condition. Medications see list. Follow-up with PCP within the next week. Just prior to patient being discharged he had a possible run of nonsustained V. tach versus idioventricular rhythm. Patient was asymptomatic. At this point we will discharge patient home with Holter if no further episodes later in the day Time Spent with Patient Time attestation: Total time spent providing and/or coordinating discharge services: Time spent: less than 30 minutes Exam Constitutional Vital Signs, click to edit/add: Last Vital Signs Temp 97.1 F L 01/01/24 05:45 Pulse 63 01/01/24 08:00 Resp 20 01/01/24 05:45 BP 130/80 01/01/24 05:45 Pulse Ox 98 01/01/24 05:45 O2 Del Method Room Air 01/01/24 05:45 Documenting provider has reviewed patient's vital signs: yes Common normals: no apparent distress Chest Common normals: inspection of chest normal Respiratory Common normals: normal respiratory effort Cardio Common normals: no JVD GI Common normals: Normal to inspection, nondistended, normoactive bowel sounds present DS: Data Data Completed and Pending Labs on day of discharge: Labs from last 24 hours 01/01/24 12/31/23 12/31/23 04:09 23:11 23:05 WBC 9.2 9.0 RBC 4.45 L 4.68 L Hgb 13.2 L 13.5 L Hct 40.2 L 41.7 L MCV 90.3 89.1 MCH 29.7 28.8 MCHC 32.8 32.4 RDW 12.9 13.0 Plt Count 227 230 MPV 11.3 10.4 Neut % (Auto) 78.0 H 84.3 H Lymph % (Auto) 10.6 L 7.4 L [place] % (Auto) 9.4 6.9 Eos % (Auto) 0.7 L 0.2 L Baso % (Auto) 0.1 L 0.1 L Neut # (Auto) 7.2 H 7.5 H Lymph # (Auto) 1.0 L 0.7 L [place] # (Auto) 0.9 H 0.6 Eos # (Auto) 0.1 0.0 Baso # (Auto) 0.0 0.0 Abs Immat Gran (auto) 0.11 H 0.10 H Imm/Tot Granulo (auto) 1.2 H 1.1 H Sodium 137 133 L Potassium 4.2 4.4 Chloride 102 102 Carbon Dioxide 30.7 30.3 Anion Gap 8.5 5.1 BUN 15.0 17.0 Creatinine 0.90 0.93 Est GFR ( Amer) >60 >60 Est GFR (Non-Af Amer) >60 >60 BUN/Creatinine Ratio 16.7 18.3 Glucose 87 118 H Calcium 8.6 8.5 Total Bilirubin 0.6 AST 26 ALT 37 Alkaline Phosphatase 90 Troponin I High Sens 13.6 Total Protein 6.8 Albumin 2.9 L Globulin 3.9 Albumin/Globulin Ratio 0.7 Urine Color Yellow Urine Clarity Clear Urine pH 7.5 Ur Specific [place] 1.015 Urine Protein Negative Urine Glucose (UA) Negative Urine Ketones Negative Urine Occult Blood Negative Urine Nitrite Negative Urine Bilirubin Negative Urine Urobilinogen 1.0 Ur Leukocyte Esterase Negative Discharge Plan Discharge Disposition: Home, Self-Care Discharge Medications: New meclizine 12.5 mg Tablet 25 mg PO TID PRN (Reason: Vertigo) Qty: 30 0RF ciprofloxacin HCl 500 mg Tablet 500 mg PO BID Qty: 14 0RF prednisone 10 mg tablet 50 mg PO DAILY Qty: 47 0RF Rx Instructions: 5/day for 3 days. 4/day for 3 days, 3/day for 3 days, 2/day for 3 days, 1/day for 3 days, 1/2 /day for 4 days Continued aspirin [Adult Aspirin Regimen] 81 mg tablet,delayed release (DR/EC) 81 mg PO DAILY carvedilol [Coreg] 25 mg tablet 25 mg PO DAILY Rx Instructions: must administer with a meal/food albuterol sulfate [Ventolin HFA] 90 mcg/actuation HFA aerosol inhaler 1 puff INHALATION Q4H PRN (Reason: shortness of breath or wheezing) allopurinol 100 mg tablet 300 mg PO DAILY dextromethorphan-guaifenesin 10-100 mg/5 mL Syrup 10 ml PO Q8H PRN (Reason: Cough) 5 Days Qty: 150 0RF Patient Instructions: Ciprofloxacin (By mouth), Prednisone (By mouth), Meclizine (By mouth) (Antivert, Antivert/25, Antivert/50, Motion..., Vertigo (DC) Forms: Portal Instructions Follow Up Appointments: Call on Wednesday to Follow up with Dr Shepherd in [place] this upcoming week [phone]
[2024-01-01] MEDS: ASPIRIN 81 MG TABLET.DR PO (09:38)
[2024-01-01] MEDS: ALLOPURINOL 100 MG TABLET 300 MG PO (09:38)
[2024-01-01] MEDS: CIPROFLOXACIN HCL 500 MG TABLET PO (09:38)
--- NOTE | 2024-01-04 12:07 | CM.NOTE ---
Attempted Discharge follow up call with no answer.
== END 2024-01-01 17:52 | disposition home or self-care (01) ==
LOC: ER 01-01 02:25 → MS 01-01 02:28
PROVIDERS: Nurse Practitioner Acute Care; Admitting Provider Family Medicine; Emergency Provider Internal Medicine; PCP Family Medicine; Visit Provider Family Medicine
DX: R42 Dizziness and giddiness (principal); I10 Essential (primary) hypertension; J20.8 Acute bronchitis due to other specified organisms; U07.1 COVID-19; Z98.890 Other specified postprocedural states; J44.9 Chronic obstructive pulmonary disease, unspecified; Z79.82 Long term (current) use of aspirin; Z79.899 Other long term (current) drug therapy; Z95.2 Presence of prosthetic heart valve; Z87.891 Personal history of nicotine dependence
CPT/HCPCS: 36415; 70450; 80048; 80053; 81003; 84484; 85025; 93005; 93246; 96372; 96374; 96375; 99285; G0378; J1100; J1650; J2060

== ENCOUNTER 2024-01-14 21:15 | Emergency (ER) | payer MEDICARE, SELFPAY ==
[2024-01-14] VITALS (22 sets, daily range): BP systolic 132–171; BP diastolic 76–105; PULSE 73–96; RESP 12–30; TEMP 37; O2SAT 93–98; BMI 29.1
--- NOTE | 2024-01-14 21:24 | ECG_ITS ---
The [facility] Test Date: 2024-01-14 Pat Name: LALA POLLACK Department: Room: - Gender: Male Assistant Professor Of Biology: : 1950 Requested By: [id number] Order Number: [id number] Reading MD: MISTY CRUZ Measurements Intervals [place] Rate: 84 P: -[id number] GA: -[id number] QRS: 30 QRSD: 76 T: 100 QT: 354 QTc: 395 Interpretive Statements [id number] Atrial fibrillation with aberrant conduction, or ventricular premature complexes [id number] Nonspecific [place] abnormality, probably digitalis effect 9140 abnormal rhythm ECG Electronically Signed On 01-15-2024 7:34:40 EST by MISTY CRUZ
--- NOTE | 2024-01-14 21:26 | ED.FALL1 ---
HPI - Fall General Chief Complaint: Fall Stated Complaint: fall Time Seen by Provider: 01/14/24 21:16 Source: patient Mode of arrival: ambulance Limitations: no limitations History of Present Illness HPI Narrative: patient lives alone. Daughter is able to monitor him at home via cameras. Has history of requiring use of a walker. States he may fall once per month. He was admitted here about 2 wks ago for dizziness and falling. Fell once this AM and again tonight. No dizziness. States he was going to the bathroom tonight when he just fell. Denies injury from the fall but was not able to get up and his daughter called 911. He denies striking his head. No complaint or pain of his hips , back or extremities Related Data Home Medications Medication Instructions Recorded Confirmed aspirin 81 mg tablet,delayed 81 mg PO DAILY 10/20/23 01/01/24 release (Adult Aspirin Regimen) carvedilol 25 mg tablet (Coreg) 25 mg PO DAILY 10/20/23 01/01/24 albuterol sulfate 90 mcg/actuation 1 puff inhalation Q4H PRN 12/25/23 01/01/24 aerosol inhaler (Ventolin HFA) shortness of breath or wheezing allopurinol 100 mg tablet 300 mg PO DAILY 12/25/23 01/01/24 Previous Rx's Medication Instructions Recorded dextromethorphan-guaifenesin 10 10 ml PO Q8H PRN Cough 5 days #150 12/27/23 mg-100 mg/5 mL oral syrup mL ciprofloxacin HCl 500 mg tablet 500 mg PO BID #14 tabs 01/01/24 meclizine 12.5 mg tablet 25 mg (2 x 12.5 mg) PO TID PRN 01/01/24 Vertigo #30 tabs prednisone 10 mg tablet 50 mg (5 x 10 mg) PO DAILY #47 tabs 01/01/24 Allergies Allergy/AdvReac Type Severity Reaction Status Date / Time No Known Drug Allergies Allergy Verified 10/20/23 16:35 Review of Systems ROS Status of ROS 10 or more systems reviewed and unremarkable except as noted in history and below [facility] Medical History (Updated 01/15/24 @ 00:48 by Rajeev Finley MD) Vertigo ?R42 - Dizziness and giddiness (ICD-10) Acute bronchitis due to COVID-19 virus ?U07.1 - COVID-19 (ICD-10) ?J20.8 - Acute bronchitis due to other specified organisms (ICD-10) HTN (hypertension) ?I10 - Essential (primary) hypertension (ICD-10) COPD (chronic obstructive pulmonary disease) ?J44.9 - Chronic obstructive pulmonary disease, unspecified (ICD-10) Ankle sprain ?S93.409A - Sprain of unspecified ligament of unspecified ankle, initial encounter (ICD-10) Inability to ambulate due to ankle or foot ?R26.2 - Difficulty in walking, not elsewhere classified (ICD-10) Surgical History Aortic valve replaced ?Z95.2 - Presence of prosthetic heart valve (ICD-10) History of open heart surgery ?Z98.890 - Other specified postprocedural states (ICD-10) Family History Mother Family history of cancer Family history of hypertension Father Family history of cancer Family history of myocardial infarction Family history of hypertension Social History Within the past year, how often did you have a drink containing alcohol: never Within the past year, how often did you have six or more drinks on one occasion: never Score interpretation: A score less than 4 is consistent with normal alcohol consumption. Smoking status: Former smoker Second hand tobacco smoke exposure: Yes Non-prescribed substance use: denies use Previous occupational history: retired Known occupational exposures/hazards: No Highest level of school completed/degree received: high school graduate Do you want help with school or training: No Are you now , , , , never or living with a partner: In a typical week, how many times do you talk on the telephone with family, friends, or neighbors: 3 or more times per week How often do you get together with friends or relatives: 3 or more times per week How often do you attend hoahaoism or protestant services: never Do you belong to any clubs or organizations such as hoahaoism groups unions, fraternal or athletic groups, or school groups: no Total score: 1 Score interpretation: A score of less than or equal to 1 indicates the most socially isolated. Little interest or pleasure in doing things: not at all Feeling down, depressed, or hopeless: not at all Feel stressed/tense/nervous/anxious/difficulty sleeping: not at all Due to disability, difficulty making decisions: No Do you think of yourself as: straight/heterosexual Gender Identity: male Exam Constitutional Vital Signs, click to edit/add: Last Vital Signs Temp 98.6 F 01/14/24 21:18 Pulse 72 01/15/24 08:17 Resp 18 01/15/24 08:17 BP 132/84 01/15/24 08:17 Pulse Ox 97 01/15/24 08:17 O2 Del Method Room Air 01/14/24 21:18 Common normals: no apparent distress, average body habitus, oriented x3, no limitations, healthy appearing, alert and well nourished HENMT Common normals: normocephalic and head/scalp atraumatic Eye Common normals: EOMs intact bilaterally and conjunctivae normal Respiratory Common normals: normal respiratory effort, no retractions, no use of accessory muscles and clear to auscultation bilaterally Cardio Common normals: regular rate, regular rhythm, S1 normal heart sound and S2 normal heart sound GI Common normals: Normal to inspection, nondistended, normoactive bowel sounds present, soft to palpation and non-tender Extremity Common normals: normal to inspection and full ROM Neuro Common normals: oriented x3, CN's II-XII intact bilaterally, moves all extremities and no focal motor deficits Psych Appearance: grossly normal Course Vital Signs Vital signs: Vital Signs Temperature 98.6 F 01/14/24 21:18 Pulse Rate 75 01/14/24 21:18 Respiratory Rate 12 01/14/24 21:18 Blood Pressure 171/105 H 01/14/24 21:18 Pulse Oximetry 95 01/14/24 21:18 Oxygen Delivery Method Room Air 01/14/24 21:18 Temperature 98.6 F 01/14/24 21:18 Pulse Rate 72 01/15/24 08:17 Respiratory Rate 18 01/15/24 08:17 Blood Pressure 132/84 01/15/24 08:17 Pulse Oximetry 97 01/15/24 08:17 Oxygen Delivery Method Room Air 01/14/24 21:18 MDM - Fall MDM Narrative Medical decision making narrative: patient lives alone. History of falling. Fell this AM and was able to get up. Fell tonight and was not able to get up. Brought to ER by [facility]. Denies injury. Denies striking his head. Requesting to go home. Exam with minor old bruise left FA but no obvious recent contusion. Head NCAT attempt to collect urine via catheter not successful and traumatized patient . he was later able to provide a specimen which demonstrated blood but no sign of infection. CBC, BMP WNL. patient again states he is feeling well and request to go home patient is able to ambulate with a walker and has steady gait Lab Data Labs: Lab Results 01/14/24 01/14/24 Range/Units 21:50 23:40 WBC 9.8 (4.0-11.0) 10^3/uL RBC 4.83 (4.70-6.10) 10^6/uL Hgb 14.2 (14.0-18.0) g/dL Hct 44.1 (42.0-54.0) % MCV 91.3 (80.0-94.0) fL MCH 29.4 (25.9-34.0) pg MCHC 32.2 (29.9-35.2) g/dL RDW 13.7 (11.0-15.0) % Plt Count 144 L (150-450) 10^3/uL MPV 10.0 (9.5-13.5) fL Neut % (Auto) 90.8 H (43.0-75.0) % Lymph % (Auto) 3.4 L (20.5-60.0) % [place] % (Auto) 4.6 (1.7-12.0) % Eos % (Auto) 0.2 L (0.9-7.0) % Baso % (Auto) 0.2 (0.2-2.0) % Neut # (Auto) 8.9 H (1.4-6.5) 10^3/uL Lymph # (Auto) 0.3 L (1.2-3.8) 10^3/uL [place] # (Auto) 0.5 (0.3-0.8) 10^3/uL Eos # (Auto) 0.0 (0.0-0.7) 10^3/uL Baso # (Auto) 0.0 (0.0-0.1) 10^3/uL Abs Immat Gran (auto) 0.08 H (0.00-0.03) 10^3/uL Imm/Tot Granulo (auto) 0.8 H (0.0-0.5) % Sodium 140 (136-145) mmol/L Potassium 4.8 (3.5-5.1) mmol/L Chloride 103 (98-107) mmol/L Carbon Dioxide 28.9 (21.0-32.0) mmol/L Anion Gap 12.9 BUN 22.0 H (7.0-18.0) mg/dL Creatinine 1.07 (0.70-1.30) mg/dL Est GFR ( Amer) >60 (>=60) Est GFR (Non-Af Amer) >60 (>=60) BUN/Creatinine Ratio 20.6 Glucose 101 (74-106) mg/dL Lactate 1.0 (0.4-2.0) mmol/L Calcium 9.4 (8.5-10.1) mg/dL Troponin I High Sens 18.5 (4.0-76.1) pg/mL Urine Color Brown A (YELLOW) Urine Clarity Clear (CLEAR) Urine pH 8.0 (5.0-9.0) Ur Specific [place] 1.010 (1.005-1.025) Urine Protein Trace (NEG/TRACE) mg/dL Urine Glucose (UA) Negative (NEGATIVE) mg/dL Urine Ketones Negative (NEGATIVE) mg/dL Urine Occult Blood Large A (NEGATIVE) Urine Nitrite Negative (NEGATIVE) Urine Bilirubin Negative (NEGATIVE) Urine Urobilinogen 0.2 (0.2-1.0) EU/dL Ur Leukocyte Esterase Negative (NEGATIVE) Urine RBC 10-20 A (0-2) #/HPF Urine WBC None seen (NONE SEEN) #/HPF Ur Squamous Epith Cells None seen (NONE/RARE) #/LPF Urine Crystals None seen (None Seen) #/HPF Urine Bacteria None seen (NONE SEEN) #/HPF Urine Casts None seen (NONE SEEN) #/LPF Urine Mucus None seen (NONE SEEN) Discharge Plan Discharge Chief Complaint: Fall Clinical Impression: Fall Patient Disposition: Home, Self-Care Prescriptions / Home Meds: No Action aspirin [Adult Aspirin Regimen] 81 mg tablet,delayed release (DR/EC) 81 mg PO DAILY carvedilol [Coreg] 25 mg tablet 25 mg PO DAILY Rx Instructions: must administer with a meal/food albuterol sulfate [Ventolin HFA] 90 mcg/actuation HFA aerosol inhaler 1 puff INHALATION Q4H PRN (Reason: shortness of breath or wheezing) allopurinol 100 mg tablet 300 mg PO DAILY dextromethorphan-guaifenesin 10-100 mg/5 mL Syrup 10 ml PO Q8H PRN (Reason: Cough) 5 Days Qty: 150 0RF meclizine 12.5 mg Tablet 25 mg PO TID PRN (Reason: Vertigo) Qty: 30 0RF ciprofloxacin HCl 500 mg Tablet 500 mg PO BID Qty: 14 0RF prednisone 10 mg tablet 50 mg PO DAILY Qty: 47 0RF Rx Instructions: 5/day for 3 days. 4/day for 3 days, 3/day for 3 days, 2/day for 3 days, 1/day for 3 days, 1/2 /day for 4 days Instructions: Fall Prevention for Older Adults (ED), Fall Prevention (ED) Stand Alone Forms: Portal Instructions Referrals: NAN CANTOR [Primary Care Provider] - 1 week Discharge Date/Time: 01/15/24 08:20
--- NOTE | 2024-01-14 21:36 | XR_ITS ---
The [address] [address] Patient Name: LALA POLLACK MRN: [id number] date: 1950 Sex: M Assigned Patient Location: ER Current Patient Location: ED.MAIN Accession/Order Number: [id number] Exam Date: 01/14/2024 22:10 Report Date: 01/14/2024 22:49 At the request of: YAMIL CLAYTON Procedure: XR chest 1V EXAM: XR chest 1V HISTORY: fall COMPARISON: Chest radiograph 12/25/2023 TECHNIQUE: AP radiograph of the chest. FINDINGS: The cardiomediastinal silhouette and pulmonary vasculature are normal. The lungs are without focal consolidation, pneumothorax, or pleural effusion. No displaced rib fracture identified. The spine is not well visualized. Postsurgical changes of previous median sternotomy. Multiple monitoring wires project over the chest. XR/XR chest 1V IMPRESSION: 1. No acute pulmonary abnormality. Electronically authenticated by: MEAGAN WALDEN Date: 01/14/2024 22:49
--- OUTSIDE RECORDS SUMMARY | 2024-01-14 21:40 | XMS_ITS | CCD ---
Author Name Unknown Address [address] [place] [address] Organization [facility] Care Team Providers Care Front End Software Engineer Name Role Phone NAN CANTOR Referring Unavailable NO PCP, NO PCP Primary Care Unavailable Problems Problem Classification Problem Date Documented Da te Episodic/Chronic Delirium, dementia, and amnestic and other cognitive disorders (1 source) Age-related physical debility; Translations: [Age-related physical debility] Onset: 11-23-2023 Chronic Encounters Encounter Date Encounter Type Care Provider Facility Start: 11-23-2023 End: 12-30-2023 ambulatory NAN CANTOR [facility] Payers Date Payer Category Payer Medicare [id number] 1950 Unknown [id number] Summary Purpose Family History No Family History Records Found Advance Directives No Advanced Directives Records Found Additional Source Comments (unrecognized sect ion and content) No Status Records Found INFORMATION SOURCE (unrecogn ized section and content) DATE CREATED AUTHOR 01/02/2024 [facility] FOR RECORDS PERTAINING TO PATIENTS WHO [...] BE BASED ON THE PRIMARY CLINICAL RECORDS. [facility] [employer] provides no warranty or guarantee of the accuracy or completeness of information in this document.
[2024-01-14 22:07] LABS: Basophils Percent Auto 0.2 % (0.2-2.0); Eosinophils Percent Auto 0.2 % (0.9-7.0); Hematocrit 44.1 % (42.0-54.0); Hemoglobin 14.2 g/dL (14.0-18.0); Immature Granulocytes Abs Auto 0.08 10^3/uL (0.00-0.03); Immature Granulocytes Pct Auto 0.8 % (0.0-0.5); Lymphocytes Absolute Auto 0.3 10^3/uL (1.2-3.8); Lymphocytes Percent Auto 3.4 % (20.5-60.0); Mean Corpuscular HGB Conc 32.2 g/dL (29.9-35.2); Mean Corpuscular Hemoglobin 29.4 pg (25.9-34.0); Mean Corpuscular Volume 91.3 fL (80.0-94.0); Monocytes Absolute Auto 0.5 10^3/uL (0.3-0.8); Monocytes Percent Auto 4.6 % (1.7-12.0); Neutrophils Absolute Auto 8.9 10^3/uL (1.4-6.5); Neutrophils Percent Auto 90.8 % (43.0-75.0); Platelet Count 144 10^3/uL (150-450); Red Blood Count 4.83 10^6/uL (4.70-6.10); Red Cell Distribution Width 13.7 % (11.0-15.0); White Blood Count 9.8 10^3/uL (4.0-11.0)
[2024-01-14] MEDS: 0.9 % SODIUM CHLORIDE 1,000 ML 100 ML IV (22:07)
[2024-01-14 22:18] LABS: Troponin I High Sensitivity 18.5 pg/mL (4.0-76.1)
[2024-01-14 23:48] LABS: Anion Gap 12.9; BUN Creatinine Ratio 20.6; Calcium 9.4 mg/dL (8.5-10.1); Carbon Dioxide 28.9 mmol/L (21.0-32.0); Chloride 103 mmol/L (98-107); Estimated GFR (African America >60 (>=60); Estimated GFR (Non-African Ame >60 (>=60); Glucose 101 mg/dL (74-106); Potassium 4.8 mmol/L (3.5-5.1); Sodium 140 mmol/L (136-145)
[2024-01-14 23:57] LABS: Bilirubin Urine NEGATIVE (NEGATIVE); Blood Urine LARGE (NEGATIVE); Clarity Urine CLEAR (CLEAR); Color Urine BROWN (YELLOW); Glucose Urine UA NEGATIVE (NEGATIVE); Ketones Urine NEGATIVE (NEGATIVE); Leukocyte Esterase Urine NEGATIVE (NEGATIVE); Nitrite Urine NEGATIVE (NEGATIVE); Protein Urine TRACE mg/dL (NEG/TRACE); Urobilinogen Urine 0.2 EU/dL (0.2-1.0)
[2024-01-15] VITALS (8 sets, daily range): BP systolic 113–142; BP diastolic 74–101; PULSE 68–85; RESP 18–25; O2SAT 92–97
[2024-01-15 00:04] LABS: Urine Microscopic Indicated YES
[2024-01-15 00:10] LABS: Bacteria Urine NONE SEEN #/HPF (NONE SEEN); Cast Seen? NONE SEEN #/LPF (NONE SEEN); Crystals Seen? None Seen #/HPF (None Seen); Mucus Urine NONE SEEN (NONE SEEN); Squamous Epithelial Cell Urine NONE SEEN #/LPF (NONE/RARE); WBC Urine NONE SEEN #/HPF (NONE SEEN)
--- NOTE | 2024-01-15 00:20 | ECG_ITS ---
The [facility] Test Date: 2024-01-15 Pat Name: LALA POLLACK Department: Room: - Gender: Male Hand Trimmer: : 1950 Requested By: [id number] Order Number: [id number] Reading MD: MISTY CRUZ Measurements Intervals [place] Rate: 81 P: 41 MO: 218 QRS: 19 QRSD: 100 T: 117 QT: 380 QTc: 418 Interpretive Statements 1100 Sinus rhythm 1574 with frequent ventricular premature complexes 2231 First degree AV block [address] depression 4564 [place] abnormality, possible lateral ischemia 9150 abnormal ECG Electronically Signed On 01-15-2024 7:35:31 EST by MISTY CRUZ
--- NOTE | 2024-01-15 00:55 | PC.NURSE ---
Talked with daughter. Attempting to find him a ride
== END 2024-01-15 08:20 | disposition home or self-care (01) ==
PROVIDERS: Emergency Provider Internal Medicine; PCP Family Medicine
DX: Z04.3 Encounter for examination and observation following other accident (principal); Z91.81 History of falling; Z79.82 Long term (current) use of aspirin; Z79.899 Other long term (current) drug therapy; I10 Essential (primary) hypertension; J44.9 Chronic obstructive pulmonary disease, unspecified; Z95.2 Presence of prosthetic heart valve; Z98.890 Other specified postprocedural states; Z87.891 Personal history of nicotine dependence
CPT/HCPCS: 36415; 71045; 80048; 81001; 83605; 84484; 85025; 93005; 99285